=== PATIENT | female | born 1985 | race Caucasian/White ===

== ENCOUNTER → 2023-12-16 07:59 | Outpatient (BNVA) | payer OTHER, SELFPAY | PROVIDERS: Visit Provider Physician Assistant Surgical ==

== ENCOUNTER 2024-02-07 13:05 | Outpatient (AMB) | payer OTHER, SELFPAY ==
--- NOTE | 2024-02-07 13:15 | MHC.OFFVISWM ---
VS Expanded 02/07/24 13:36 Height 5 ft 4 in Weight 218 lb 8 oz BMI 37.5 Body Fat % 41.8 Body Fat Mass 91.4 Fat Free Mass 127.2 Visceral Fat Rating 10 Body Water % 41.5 Body Water Mass 90.8 Basal Metabolic Rate/Score 1,774 Intake Visit Reasons: TV Revision SWL BMI 37.6 *SEE COMMENTS* Allergies adhesive Allergy (Severe, Verified 02/07/24 13:15) Blister Medication List - Last Reconciled 02/07/24 by Alfredo Taylor MD ferrous sulfate (FeroSul) 325 mg PO DAILY levothyroxine 25 mcg PO DAILY multivitamin (Multiple Vitamins tablet) 1 tab PO DAILY omeprazole 20 mg PO BID HPI HPI TV Revision SWL BMI 37.6 *SEE COMMENTS*: Details: Start time: 1.09pm, End time: 1.54pm ?I spent 40 minutes speaking with the patient on the phone plus an additional 5 minutes reviewing and updating records for a total of 45 minutes HPI Comments Details: Previous weight loss efforts: LSG (Pre-sleeve: 287lbs, lowest: 205lbs) Complains of GERD and has been diagnosed with a diaphragmatic hernia Wakes up: 6am, Sleeps: 12am Breakfast: skips Lunch: may skip 1pm (2 boiled eggs and one apple or cheese sticks, or some bread) Dinner: 6.30pm (rice, meats, chicken, fish, vegetables) Snacks: 8am (crackers), 8pm (chips or fruits, goldfish crackers, yogurt) Exercise: none Fluids: Coffee 30oz/d (creamers), tea: none, soda: none, juice: rarely, ETOH: a few times per year PFSH Medical History (Updated 02/07/24 @ 13:40 by Alfredo Taylor MD) Hypothyroidism Knee pain Diaphragmatic hernia GERD (gastroesophageal reflux disease) BMI 37.0-37.9, adult Obesity Surgical History (Updated 12/16/23 @ 09:02 by Jhoana Hernandez CMA) Hx of laparoscopic partial gastrectomy Hx of tubal ligation Hx of section Hx of cholecystectomy Hx of adenoidectomy Hx of tonsillectomy Hx of myringotomy Social History (Updated 12/16/23 @ 09:03 by Jhoana Hernandez CMA) Alcohol intake: current Alcohol intake frequency: holidays/special occasions only Alcohol type: hard liquor and other Patient Tobacco Use Status: Never used Tobacco Telehealth Telehealth Telehealth Platform: Telephone Location of provider rendering services: practice address Location of patient: address on file Patient Identification confirmed using: Name, : Yes Telehealth method: voice only Patient verbally consented to treatment: Yes Patient verbally consented to billing insurance company: Yes Patient informed of any privacy concerns related to visit: Yes Minutes spent on Phone/Video with Pt.: 45 Assessment & Plan Assessment & Plan (1) Obesity: Code(s): E66.9 - Obesity, unspecified Category: Medical Qualifiers: Obesity type: due to excess calories Obesity classification: adult class 2 (BMI 35 - 39.9) Serious obesity comorbidity presence: without serious comorbidity Body mass index: BMI 37.0-37.9 Qualified Code(s): E66.09 - Other obesity due to excess calories; Z68.37 - Body mass index [BMI] 37.0-37.9, adult Plan: 1.? Plan for lap sleeve gastrectomy revision. If diaphragmatic or ventral hernias are present at time of surgery, these will be repaired laparoscopically as well. Risks and complications include possible conversion to an open procedure, anastomotic leak, bleeding requiring transfusion, small bowel obstruction, , DVT and pulmonary embolism, cardiac, or pulmonary complications, as detention complications such as anastomotic ulcer, insufficient weight loss, inability to complete the surgery revision and vitamin deficiencies. I emphasized the importance of close follow-up, adherence to instructions and good communication. 2. You will receive a link of our software yfn to generate an individualized nutritional and exercise plan specific for you. Please send me a screenshot of the plans you will generate Meal to include lean meat (beef, fish, pork, turkey, chicken), or moroccan yogurt, or egg whites, or beans with a salad with olive oil and fruits (berries, pears, apples, kiwi). Avoid salt, breads, potatoes, rice, pasta, desserts. ?3. If you choose shakes, each shake would be drunk slowly, like coffee in a period of 2 hours. ?4. If you choose bars, cut each bar in 4 pieces and eat each piece in 30min ?to make each bar last 2 hours. ?5. I emphasized the importance of measuring accurately the food portion and measure it when serving the food in plate ?6. The meal portions include a specific number of forks of meat and salad. You always eat the meat portion but you can replace up to half of salad/vegetables portion with rice, potatoes or pasta, or a fruit ?if you like. The less you do it the better weight loss will be. ?7. One full-size fork is what it can be scooped on the fork without falling aside and not what can be bit with the fork. Use regular forks like those you find in a typical restaurant. ?8.? Please send me weight measurements as soon as possible and then once a week. Always include your diet and exercise plan. 9. The best choice would be to purchase a stationary bike, elliptical or treadmill at home that can track calories. Let me know if you do so I can give you an exercise plan. ?10.?It is important of avoiding and for at least 18 months postoperatively and has been discussed at the infosession. ?11. Goal is to lose at least 1.5-2lbs per week ?12. Goal to lose 10% of your weight before surgery, which is about 22lbs. Ultimate weight goal: 196lbs before surgery 13. Please follow the diet plan exactly without any change. If you don't like something about the plan or you feel hungry you need to communicate with me so I can help you revise the plan. You should not change the plan yourself. 14. To be scheduled for EGD due to history of GERD and diaphragmatic hernia. The possibility of biopsies was discussed. Patient needs to avoid use of NSAIDs and aspirin for 1 week prior to EGD. Risks of perforation and? bleeding was discussed with the patient. This will be an outpatient procedure with IV sedation. Orders: Orders Insulin Today E03.9 - Hypothyroidism, unspecified, E66.9 - Obesity, unspecified, K21.9 - Gastro-esophageal reflux disease without esophagitis, K44.9 - Diaphragmatic hernia without obstruction or gangrene, Z68.37 - Body mass index [BMI] 37.0-37.9, adult Hemoglobin A1c Today E03.9 - Hypothyroidism, unspecified, E66.9 - Obesity, unspecified, K21.9 - Gastro-esophageal reflux disease without esophagitis, K44.9 - Diaphragmatic hernia without obstruction or gangrene, Z68.37 - Body mass index [BMI] 37.0-37.9, adult H Pylori Breath Test Today E03.9 - Hypothyroidism, unspecified, E66.9 - Obesity, unspecified, K21.9 - Gastro-esophageal reflux disease without esophagitis, K44.9 - Diaphragmatic hernia without obstruction or gangrene, Z68.37 - Body mass index [BMI] 37.0-37.9, adult IRON PROFILE Today E03.9 - Hypothyroidism, unspecified, E66.9 - Obesity, unspecified, K21.9 - Gastro-esophageal reflux disease without esophagitis, K44.9 - Diaphragmatic hernia without obstruction or gangrene, Z68.37 - Body mass index [BMI] 37.0-37.9, adult Comprehensive Met. Panel Today E03.9 - Hypothyroidism, unspecified, E66.9 - Obesity, unspecified, K21.9 - Gastro-esophageal reflux disease without esophagitis, K44.9 - Diaphragmatic hernia without obstruction or gangrene, Z68.37 - Body mass index [BMI] 37.0-37.9, adult C Reactive Protein Today E03.9 - Hypothyroidism, unspecified, E66.9 - Obesity, unspecified, K21.9 - Gastro-esophageal reflux disease without esophagitis, K44.9 - Diaphragmatic hernia without obstruction or gangrene, Z68.37 - Body mass index [BMI] 37.0-37.9, adult Vitamin B1 Today E03.9 - Hypothyroidism, unspecified, E66.9 - Obesity, unspecified, K21.9 - Gastro-esophageal reflux disease without esophagitis, K44.9 - Diaphragmatic hernia without obstruction or gangrene, Z68.37 - Body mass index [BMI] 37.0-37.9, adult Vitamin A Today E03.9 - Hypothyroidism, unspecified, E66.9 - Obesity, unspecified, K21.9 - Gastro-esophageal reflux disease without esophagitis, K44.9 - Diaphragmatic hernia without obstruction or gangrene, Z68.37 - Body mass index [BMI] 37.0-37.9, adult TSH reflex Free T4 Today E03.9 - Hypothyroidism, unspecified, E66.9 - Obesity, unspecified, K21.9 - Gastro-esophageal reflux disease without esophagitis, K44.9 - Diaphragmatic hernia without obstruction or gangrene, Z68.37 - Body mass index [BMI] 37.0-37.9, adult Ferritin Today E03.9 - Hypothyroidism, unspecified, E66.9 - Obesity, unspecified, K21.9 - Gastro-esophageal reflux disease without esophagitis, K44.9 - Diaphragmatic hernia without obstruction or gangrene, Z68.37 - Body mass index [BMI] 37.0-37.9, adult US abdomen comp w elastography Today E03.9 - Hypothyroidism, unspecified, E66.9 - Obesity, unspecified, K21.9 - Gastro-esophageal reflux disease without esophagitis, K44.9 - Diaphragmatic hernia without obstruction or gangrene, Z68.37 - Body mass index [BMI] 37.0-37.9, adult ECG 12 lead EKG Today E03.9 - Hypothyroidism, unspecified, E66.9 - Obesity, unspecified, K21.9 - Gastro-esophageal reflux disease without esophagitis, K44.9 - Diaphragmatic hernia without obstruction or gangrene, Z68.37 - Body mass index [BMI] 37.0-37.9, adult Complete Blood Count Auto Diff Today E03.9 - Hypothyroidism, unspecified, E66.9 - Obesity, unspecified, K21.9 - Gastro-esophageal reflux disease without esophagitis, K44.9 - Diaphragmatic hernia without obstruction or gangrene, Z68.37 - Body mass index [BMI] 37.0-37.9, adult Lipid Panel Today E03.9 - Hypothyroidism, unspecified, E66.9 - Obesity, unspecified, K21.9 - Gastro-esophageal reflux disease without esophagitis, K44.9 - Diaphragmatic hernia without obstruction or gangrene, Z68.37 - Body mass index [BMI] 37.0-37.9, adult Vitamin B12 and Folate Today E03.9 - Hypothyroidism, unspecified, E66.9 - Obesity, unspecified, K21.9 - Gastro-esophageal reflux disease without esophagitis, K44.9 - Diaphragmatic hernia without obstruction or gangrene, Z68.37 - Body mass index [BMI] 37.0-37.9, adult Zinc Today E03.9 - Hypothyroidism, unspecified, E66.9 - Obesity, unspecified, K21.9 - Gastro-esophageal reflux disease without esophagitis, K44.9 - Diaphragmatic hernia without obstruction or gangrene, Z68.37 - Body mass index [BMI] 37.0-37.9, adult Vitamin D 25-OH Total Today E03.9 - Hypothyroidism, unspecified, E66.9 - Obesity, unspecified, K21.9 - Gastro-esophageal reflux disease without esophagitis, K44.9 - Diaphragmatic hernia without obstruction or gangrene, Z68.37 - Body mass index [BMI] 37.0-37.9, adult XR chest 2V Today E03.9 - Hypothyroidism, unspecified, E66.9 - Obesity, unspecified, K21.9 - Gastro-esophageal reflux disease without esophagitis, K44.9 - Diaphragmatic hernia without obstruction or gangrene, Z68.37 - Body mass index [BMI] 37.0-37.9, adult Referrals Behavioral Health Referral E03.9 - Hypothyroidism, unspecified, E66.9 - Obesity, unspecified, K21.9 - Gastro-esophageal reflux disease without esophagitis, K44.9 - Diaphragmatic hernia without obstruction or gangrene, Z68.37 - Body mass index [BMI] 37.0-37.9, adult Nutrition/Dietitian Referral E03.9 - Hypothyroidism, unspecified, E66.9 - Obesity, unspecified, K21.9 - Gastro-esophageal reflux disease without esophagitis, K44.9 - Diaphragmatic hernia without obstruction or gangrene, Z68.37 - Body mass index [BMI] 37.0-37.9, adult
[2024-02-07 13:36] VITALS: BMI 37.5
== END 2024-02-07 13:55 | disposition home or self-care (01) ==
LOC: HO.HBS 13:05
PROVIDERS: PCP Internal Medicine; Visit Provider Surgery
DX: E66.09 Other obesity due to excess calories (principal); Z68.37 Body mass index [BMI] 37.0-37.9, adult
CPT/HCPCS: 99443

== ENCOUNTER → 2024-02-07 13:05 | Outpatient (BNVA) | payer OTHER, SELFPAY | PROVIDERS: PCP Internal Medicine; Visit Provider Surgery ==

== ENCOUNTER 2024-03-01 12:50 | Day surgery (SDC) | payer OTHER, SELFPAY ==
[2024-03-01 12:49] LABS: MANUAL DIFF FLAG NO
[2024-03-01 13:24] LABS: Basophils Absolute Auto 0.1 X10*3/uL (0.0-0.2); Basophils Percent Auto 0.9 % (0-2); Eosinophils Absolute Auto 0.1 X10*3/uL (0.0-0.4); Eosinophils Percent Auto 2.4 % (0-4); Hematocrit 37.8 % (37.0-47.0); Hemoglobin 11.9 g/dl (12.0-16.0); Imm Gran Abs Auto 0.02 X10*3/uL (0.00-0.03); Imm Gran Pct Auto 0.4 % (0.0-0.4); Mean Corpuscular HGB Conc 31.5 g/dl (31.0-35.0); Mean Corpuscular Hemoglobin 23.8 pg (27.0-33.0); Mean Corpuscular Volume 75.4 fL (80.0-98.0); Mean Platelet Volume 11.7 fL (9.4-12.3); Monocytes Absolute Auto 0.4 X10*3/uL (0.1-1.2); Monocytes Percent Auto 8.1 % (2-11); Neutrophils Absolute Auto 2.8 x10*3/uL (2.0-8.3); Neutrophils Percent Auto 52.2 % (45-73); Platelet Count 238 X10*3/uL (160-400); Red Blood Count 5.01 X10*6/uL (4.20-5.50); Red Cell Distribution Width 13.8 % (11.0-16.0); White Blood Count 5.4 X10*3/uL (4.8-10.8)
[2024-03-01 13:45] LABS: Estimated Average Glucose 105 mg/dL; Hemoglobin A1c % 5.3 % (<6.0)
--- NOTE | 2024-03-01 14:21 | HO.ANESPROP2 ---
HPI - Anesthesia Eval Consult details Narrative: 38 yo female patient for EGD. Pre-op for revision of sleeve gastrectomy, repair of diaphragmatic hernia PMFSH Active Problems Active Problems: All Active Problems Hypothyroidism (Acute) Knee pain (Acute) Diaphragmatic hernia (Acute) GERD (gastroesophageal reflux disease) (Acute) Morbid Obesity BMI 40.4 Denies HUI Hiatal hernia Past Medical History Medical History Hypothyroidism Knee pain Diaphragmatic hernia GERD (gastroesophageal reflux disease) BMI 37.0-37.9, adult Obesity Family History Family history of problems with anesthesia: No Surgical History Surgical History Hx of laparoscopic partial gastrectomy Hx of tubal ligation Hx of section Hx of cholecystectomy Hx of adenoidectomy Hx of tonsillectomy Hx of myringotomy History of Problems with Anesthesia: No Social History Social History Alcohol intake: current Alcohol intake frequency: holidays/special occasions only Alcohol type: hard liquor and other Patient Tobacco Use Status: Never used Tobacco Meds Allergies Allergy/AdvReac Type Severity Reaction Status Date / Time adhesive Allergy Severe Blister Verified 03/01/24 14:26 Active Medications: Current Medications Lactated Ringer's (Lr) 1,000 mls @ 80 mls/hr IVCONT .[id number] Home Medications ?Medication ?Instructions ?Recorded ?Confirmed ?Last Taken ?Type ferrous sulfate 325 mg (65 mg 325 mg PO DAILY 12/16/23 03/01/24 Unknown History iron) tablet (FeroSul) levothyroxine 25 mcg capsule 25 mcg PO DAILY 12/16/23 03/01/24 Unknown History multivitamin (Multiple Vitamins 1 tab PO DAILY 12/16/23 03/01/24 Unknown History tablet) omeprazole 20 mg capsule,delayed 20 mg PO BID 02/07/24 03/01/24 Unknown History release Exam Height,Weight and Vital Signs: Height 5 ft 3 in Weight 103.419 kg Vital Signs Temp Pulse Resp BP Pulse Ox O2 Del Method 03/01/24 14:27 98.0 F 73 16 160/85 H 98 Room Air Pertinent Lab Results Pertinent Lab Results: Laboratory Tests 03/01/24 12:48 WBC 5.4 RBC 5.01 Hgb 11.9 L Hct 37.8 MCV 75.4 L MCH 23.8 L MCHC 31.5 RDW 13.8 Plt Count 238 MPV 11.7 Immature Gran % (Auto) 0.4 Neut % (Auto) 52.2 Lymph % (Auto) 36.0 [place] % (Auto) 8.1 Eos % (Auto) 2.4 Baso % (Auto) 0.9 Lymph # (Auto) 2.0 [place] # (Auto) 0.4 Eos # (Auto) 0.1 Baso # (Auto) 0.1 Abs Immat Gran (auto) 0.02 Absolute Neuts (auto) 2.8 Absolute Nucleated RBC 0.000 Nucleated RBC % (auto) 0.0 Estimat Average Glucose 105 Hemoglobin A1c % 5.3 Lab Results 03/01/24 Range/Units 12:48 WBC 5.4 (4.8-10.8) X10*3/uL RBC 5.01 (4.20-5.50) X10*6/uL Hgb 11.9 L (12.0-16.0) g/dl Hct 37.8 (37.0-47.0) % MCV 75.4 L (80.0-98.0) fL MCH 23.8 L (27.0-33.0) pg MCHC 31.5 (31.0-35.0) g/dl RDW 13.8 (11.0-16.0) % Plt Count 238 (160-400) X10*3/uL MPV 11.7 (9.4-12.3) fL Immature Gran % (Auto) 0.4 (0.0-0.4) % Neut % (Auto) 52.2 (45-73) % Lymph % (Auto) 36.0 (20-40) % [place] % (Auto) 8.1 (2-11) % Eos % (Auto) 2.4 (0-4) % Baso % (Auto) 0.9 (0-2) % Lymph # (Auto) 2.0 (1.2-4.9) X10*3/uL [place] # (Auto) 0.4 (0.1-1.2) X10*3/uL Eos # (Auto) 0.1 (0.0-0.4) X10*3/uL Baso # (Auto) 0.1 (0.0-0.2) X10*3/uL Abs Immat Gran (auto) 0.02 (0.00-0.03) X10*3/uL Absolute Neuts (auto) 2.8 (2.0-8.3) x10*3/uL Absolute Nucleated RBC 0.000 (0.0-0.012) X10*3/uL Nucleated RBC % (auto) 0.0 (0.0-0.2) /100WBC Sodium 141 (135-145) mmol/L Potassium 4.1 (3.3-5.1) mmol/L Chloride 108 (96-108) mmol/L Carbon Dioxide 25 (22-29) mmol/L Anion Gap 12 (12-20) BUN 12 (9-16) mg/dL Creatinine 0.80 (0.5-1.4) mg/dL Estim Creat Clear Calc 107.4 Estimated GFR > 60 Random Glucose 84 (60-115) mg/dL Estimat Average Glucose 105 mg/dL Hemoglobin A1c % 5.3 (<6.0) % Insulin Level 5 (2-29) uU/mL Calcium 9.2 (8.4-10.2) mg/dL Iron 34 (30-160) mcg/dL TIBC 329 (228-428) mcg/dL % Saturation 10 L (15-50) % Unsat Iron Binding 295 ug/dL Ferritin 5 L (10-250) ng/mL Total Bilirubin 0.8 (0.0-1.0) mg/dL AST 14 (5-31) U/L ALT 12 (0-31) U/L Alkaline Phosphatase 83 (39-117) U/L C-Reactive Protein 0.72 H (< or = 0.50) mg/dL Total Protein 7.3 (6.5-8.0) g/dL Albumin 4.1 (3.5-5.0) g/dL Triglycerides 83 (<150) mg/dL Cholesterol 154 (<200) mg/dL LDL Cholesterol, Calc 83 (<100) mg/dL HDL Cholesterol 55 (>40) mg/dL 25-OH Vitamin D Total 20.7 L (>30) ng/mL TSH 3.65 (0.32-4.0) uIU/mL Airway Mallampati Class: II TM Dist: >3cm Neck ROM: Full Loose/Missing/Broken Teeth: Yes (Missing teeth- back. Denies broken or loose teeth) Heart: RRR Lungs: CTAB Assessment and Plan Assessment Anesthesia Assessment: Anesthesia Plan Discussed and Chart Reviewed Final Anesthetic Review Family History of Problems with Anesthesia: No History of Problems with Anesthesia: No NPO: Yes ASA Class: III Final Preanesthetic Review: No Changes in Pt Med Stat, Meds/Allgs Chart Reviewed, Consent Obtained/Reviewed and Anes Risks/Benef Reviewed Patient Risk: Intermediate Procedure Risk: Low Assessment/Block/Sedation in SS: Assess/Block/Sedation-SS Anesthetic Plan Anesthetic Plan: TIVA Disposition: Standard PACU
[2024-03-01 14:26] VITALS: BMI 40.4
[2024-03-01 14:27] VITALS: BP 160/85; PULSE 73; RESP 16; TEMP 36.7; O2SAT 98
[2024-03-01 14:29] LABS: Alanine Aminotransferase 12 U/L (0-31); Albumin Level 4.1 g/dL (3.5-5.0); Alkaline Phosphatase 83 U/L (39-117); Anion Gap 12 (12-20); Aspartate Amino Transferase 14 U/L (5-31); Bilirubin Total 0.8 mg/dL (0.0-1.0); Blood Urea Nitrogen 12 mg/dL (9-16); C Reactive Protein 0.72 mg/dL (< or = 0.50); Calcium 9.2 mg/dL (8.4-10.2); Carbon Dioxide 25 mmol/L (22-29); Chloride 108 mmol/L (96-108); Cholesterol 154 mg/dL (<200); Creatinine Clr Calc Pharmacy 107.4; Estimated Glomerular Filt Rate > 60; Glucose Random 84 mg/dL (60-115); HDL Cholesterol 55 mg/dL (>40); Iron 34 mcg/dL (30-160); LDL Cholesterol Calculated 83 mg/dL (<100); Percent Iron Saturation 10 % (15-50); Potassium 4.1 mmol/L (3.3-5.1); Sodium 141 mmol/L (135-145); Total Iron Binding Capacity 329 mcg/dL (228-428); Total Protein 7.3 g/dL (6.5-8.0); Triglycerides 83 mg/dL (<150); Unsaturated Iron Binding 295 ug/dL
[2024-03-01 14:32] LABS: Ferritin 5 ng/mL (10-250); Insulin 5 uU/mL (2-29); TSH reflex Free T4 3.65 uIU/mL (0.32-4.0); Vitamin D 25-OH Total 20.7 ng/mL (>30)
[2024-03-01 14:50] LABS: Vitamin B12 472 pg/mL (200-900)
--- NOTE | 2024-03-01 15:00 | MHC.SHP ---
Pre-Procedural Eval Section A - 24 Hr Update-Section A only Date of Service: 03/01/24 The patient is an INPATIENT: No The patient has been examined within 24 hours of the surgical procedure. The History & Physical has been completed within 30 days and I have reviewed it.: Yes Section B - Complete if H&P > 30 days Chief Complaint: Bariatric surgery status Details of Present Illness: Diaphragmatic hernia Relevant Family History (Specify if Yes): No Relevant Social History: None Present Medications: None Medical History: No relevant PMH History of Previous Operations: Relevant previous surgery/procedure and date(s) (s/p sleeve gastrectomy Dr. Marshall) Allergies: Allergies Allergy/AdvReac Type Severity Reaction Status Date / Time adhesive Allergy Severe Blister Verified 03/01/24 14:26 Review of Systems Sugical H&P ROS: Negative: Constitution, Cardiovascular, Respiratory, Neurological, Psychiatric, Hem-Onc, Allergic/Immunologic, Gastrointestinal, Genitourinary, Musculoskeletal, Integumentary, Endocrine and Eyes/Ears/Nose/Throat Exam Surgical H&P Exam: Normal: HEENT, Normal: Heart, Normal: Lungs, Normal: Extremities, Normal: Abdomen, Normal: Skin and Normal: Neurological Plan Diagnosis/Plan: Unchanged (EGD to assess the diaphragmatic hernia and the anatomy of the sleeve. Risks of bleeding and perforation were discussed with the patient and she is in agreement with the plan.) I have reviewed the history and physical and performed a pertinent physical examination on my patient. No changes have occurred unless specified. Time Spent With Patient Time: Total time managing care of this patient today ____ minutes.
--- NOTE | 2024-03-01 15:20 | PM.OP ---
Brief Operative Note Date of Service: 03/01/24 Pre-op diagnosis: Diaphragmatic hernia, s/p sleeve gastrectomy Post-op diagnosis: same (1) Diaphragmatic hernia, 2) moderate size redundancy of proximal sleeve) Procedure: PROCEDURE DATE: 03/01/2024 PREOPERATIVE DIAGNOSIS: GERD, s/p sleeve gastrectomy POSTOPERATIVE DIAGNOSIS: ?Same as above. 1) small hiatal hernia, 2) moderate/significant redundancy of proximal sleeve, 3) large caliber sleeve PROCEDURE: [id number] with biopsies Surgeon: ?Nic Taylor M.D.. Ph.D. [employer] Worker: None ? Anesthesia: IV sedation Estimated blood loss: ?Minimal FINDINGS AND PROCEDURE: ? OPERATIVE INDICATIONS: ?The patient is a 38 year old female known to me who underwent a laparoscopic sleeve gastrectomy at [facility] by Dr. Marshall. The patient had inadequate weight loss so far and has a diaphragmatic hernia based on recent UGI. The patient was doing very well but has recently been complaining of GERD. Based on this information I recommended an upper endoscopy to evaluate the patient's symptoms. Risks and complications of the surgery were discussed with the patient in advance particularly the possibility of perforation or bleeding that may require surgical intervention. The patient understood the risks and was in agreement with the plan. ? PROCEDURE: After informed consent was obtained by the patient, the patient was ?transferred to the Operating Room and was placed in the supine position.? After successful induction of IV sedation, a mouth block was inserted and the patient was placed in the left lateral decubitus position. An upper endoscopy was performed next, the oropharynx and esophagus appeared within the normal limits. There was a small 3cm hiatal hernia. The z-line was smooth. Two biopsies were obtained from the distal esophagus 2-3 cm proximal to the GE junction and two additional biopsies from the GE junction. The sleeve was entered. There was moderate to significant proximal redundancy of the sleeve. The distal sleeve had a large caliber overall. There was no gastritis. There was no stricture or ulcer. Biopsies were obtained from the proximal sleeve as well as the antrum. No significant bleeding was noted from any of the biopsy sites. The scope was then advanced into the duodenum which appeared to be normal as well. At that point the duodenum ?and the sleeve were decompressed and the scope was withdrawn from the patient's mouth. The patient extubated and was transferred in stable condition to the Recovery Room for further care. I was present and performed all steps of the procedure. There were no residents to assist with this case. Nic Taylor M.D., Ph.D. Surgeon: Alfredo Taylor MD Anesthesia: MAC Was an [employer] Worker used for this Procedure?: No Estimated blood loss (mL): 0 IV fluids (mL): 400 Urine output (mL): 0 (No Goins to record output) Pathology: other (1) antrum x1, 2) proximal sleeve/gastric fundus x1, 3) EGJ x2, 4) distal esophagus x2) Condition: stable Disposition: PACU
[2024-03-01 15:23] VITALS: BP 121/71; PULSE 93; RESP 18; TEMP 36.3; O2SAT 98
[2024-03-01 15:38] VITALS: BP 136/78; PULSE 65; RESP 16; TEMP 36.3; O2SAT 100
[2024-03-01 15:52] VITALS: BP 123/80; PULSE 67; RESP 16; TEMP 36.3; O2SAT 100
[2024-03-04 09:08] LABS: Zinc 71 mcg/dL (60-130)
[2024-03-04 21:48] LABS: Vitamin A 31 mcg/dL (38-98)
[2024-03-07 06:40] LABS: Vitamin B1 10 nmol/L (8-30)
== END 2024-03-01 16:06 | disposition home or self-care (01) ==
PROVIDERS: PCP Internal Medicine; Visit Provider Surgery
PROC: 0DJ08ZZ Inspection of Upper Intestinal Tract, Via Natural or Artificial Opening Endoscopic (ICD-10-PCS; CPT 43235; principal; 2024-03-01 15:50)
DX: K21.9 Gastro-esophageal reflux disease without esophagitis (principal); K44.9 Diaphragmatic hernia without obstruction or gangrene; Z98.84 Bariatric surgery status; Z90.3 Acquired absence of stomach [part of]; E66.09 Other obesity due to excess calories; Z68.37 Body mass index [BMI] 37.0-37.9, adult; M25.569 Pain in unspecified knee; E03.9 Hypothyroidism, unspecified; Z79.899 Other long term (current) drug therapy; L23.1 Allergic contact dermatitis due to adhesives; Z98.890 Other specified postprocedural states
CPT/HCPCS: 43239; 36415; 80053; 80061; 82306; 82607; 82728; 82746; 83036; 83525; 83540; 84425; 84443; 84590; 84630; 85025; 86140; 88305; 88313; 88342; J2704

== ENCOUNTER → 2024-03-01 12:50 | Outpatient (BNV) | payer OTHER, SELFPAY | PROVIDERS: PCP Internal Medicine; Visit Provider Surgery | DX: K44.9 Diaphragmatic hernia without obstruction or gangrene (principal); K95.89 Other complications of other bariatric procedure; Z98.84 Bariatric surgery status | CPT/HCPCS: 43239 ==

== ENCOUNTER 2024-03-17 08:21 | Outpatient (REF) | payer OTHER, SELFPAY ==
--- NOTE | ~2024-03-17 | XR_ITS ---
EXAMINATION: XR CHEST 2 VIEWS CLINICAL INFORMATION: Obesity. COMPARISON: None. TECHNIQUE: Frontal and lateral views of the chest were obtained. FINDINGS: The heart, great vessels, pulmonary vasculature and mediastinum are normal. The lungs show no focal infiltrate, effusion or pneumothorax. There is no acute osseous abnormality. XR/XR chest 2V IMPRESSION: No active cardiopulmonary disease.
--- NOTE | ~2024-03-17 | US_ITS ---
EXAMINATION: US COMPLETE ABDOMEN WITH LIVER ELASTOGRAPHY CLINICAL INFORMATION: Obesity. COMPARISON: None available. TECHNIQUE: Real-time imaging of the abdominal viscera. Noninvasive ultrasound liver fibrosis assessment is performed using Deepak ElastPQ point quantification shear wave elastography (pSWE) with a C5-2 MHz transducer. Multiple elastography samples are obtained. FINDINGS: PANCREAS: Limited. The visualized pancreatic head and body are normal in appearance. The remainder of the pancreas is obscured from visualization by the overlying bowel gas. ABDOMINAL AORTA: The proximal, middle, and distal aortic segments are normal in caliber. INFERIOR VENA CAVA: Visualized portions are normal. LIVER: Normal. The liver demonstrates normal size, contour and echogenicity. No focal lesion or intrahepatic biliary duct dilatation. The right lobe measures 15.0 cm in length. The left lobe measures 7.8 cm in length. Portal flow is towards the liver (hepatopetal). Shear wave liver elastography median stiffness is 1.17 m/s (reference: normal median stiffness is 1.3 m/s or less). IQR/median stiffness to assess sampling precision is 0.23 (reference: good quality data set is IQR/median stiffness of 0.15 or less). GALLBLADDER: Normal. The gallbladder is physiologically distended without evidence of stones, sludge, polyps, wall thickening or pericholecystic fluid. COMMON BILE DUCT: Normal in caliber measuring 0.5 cm in diameter. RIGHT KIDNEY: Normal. No hydronephrosis. No renal calculi or focal parenchymal lesions. The kidney measures 11.6 cm in maximum dimension. LEFT KIDNEY: Normal. No hydronephrosis. No renal calculi or focal parenchymal lesions. The kidney measures 12.0 cm in maximum dimension. SPLEEN: Normal. The spleen measures 12.9 cm in maximum dimension. FREE FLUID: None. US/US abdomen comp w elastography IMPRESSION: 1. The spleen is upper normal in size. 2. The gallbladder is surgically absent. 3. Liver elastography: Measurements are consistent with a high probability of normal liver stiffness. REFERENCE: Society of Radiologists in Ultrasound Liver Stiffness Thresholds (2020): LIVER STIFFNESS THRESHOLDS: *Liver Stiffness equal or less than 1.3 m/s: High probability of being normal. *Liver Stiffness less than 1.7 m/s: In the absence of other known clinical signs, rules out compensated advanced chronic liver disease. *Liver Stiffness 1.7-2.1 m/s: Suggestive of compensated advanced chronic liver disease but need further test for confirmation. *Liver Stiffness over 2.1 m/s: Rules in compensated advanced chronic liver disease. *Liver Stiffness over 2.4 m/s: Suggestive of clinically significant portal hypertension. QUALITY OF DATA SET: *IQR/Median value equal or less than 0.15 implies a quality data set. *IQR/Median value over 0.15 implies a poor quality data set. SIGNIFICANT CHANGE FROM PRIOR EXAM: Significant change if liver stiffness measurement is 10% or greater from prior exam. OTHER CONSIDERATIONS: The stage of liver fibrosis may be overestimated in the setting of acute hepatitis, liver inflammation, elevated liver function tests, hepatic vascular congestion, obstructive cholestasis, non-fasting state, and infiltrative diseases such as amyloidosis and lymphoma. In some patients with NAFLD, the liver stiffness thresholds for compensated advanced chronic liver disease may be lower. In causes other than viral hepatitis and NAFLD, liver stiffness thresholds are not well established. Electronically signed by: Carlos Roberto MD 04/14/2024 01:09 AM EDT
--- NOTE | 2024-03-17 08:26 | ECG_ITS ---
Test Reason : OBESITY Blood Pressure : / mmHG Vent. Rate : 071 BPM Atrial Rate : 071 BPM P-R Int : 146 ms QRS Dur : 084 ms QT Int : 390 ms P-R-T Axes : 058 044 009 degrees QTc Int : 423 ms Normal sinus rhythm Normal ECG No previous ECGs available Referred By: Alfredo Taylor Electronically Signed By:JOYA VILLAFUERTE
== END 2024-03-17 08:22 | disposition home or self-care (01) ==
LOC: HO.US 08:21
PROVIDERS: PCP Internal Medicine; Visit Provider Surgery
DX: E66.9 Obesity, unspecified (principal); Z68.37 Body mass index [BMI] 37.0-37.9, adult; K21.9 Gastro-esophageal reflux disease without esophagitis; K44.9 Diaphragmatic hernia without obstruction or gangrene; E03.9 Hypothyroidism, unspecified
CPT/HCPCS: 71046; 76700; 76981; 93005

== ENCOUNTER → 2024-03-17 08:26 | Outpatient (BNV) | payer OTHER, SELFPAY | PROVIDERS: PCP Internal Medicine; Visit Provider Internal Medicine | DX: E03.9 Hypothyroidism, unspecified (principal); E66.9 Obesity, unspecified; Z68.37 Body mass index [BMI] 37.0-37.9, adult; K21.9 Gastro-esophageal reflux disease without esophagitis | CPT/HCPCS: 93010 ==

== ENCOUNTER 2024-03-29 13:17 | Outpatient (AMB) | payer OTHER, SELFPAY ==
--- NOTE | 2024-03-29 13:13 | A.OFFWM_ITS ---
Intake Intake Visit Reasons: (TV) Intake Allergies adhesive Allergy (Severe, Verified 03/01/24 14:26) Blister [facility] Medical History Hypothyroidism Knee pain Diaphragmatic hernia GERD (gastroesophageal reflux disease) BMI 37.0-37.9, adult Obesity Surgical History Hx of laparoscopic partial gastrectomy Hx of tubal ligation Hx of section Hx of cholecystectomy Hx of adenoidectomy Hx of tonsillectomy Hx of myringotomy Social History Alcohol intake: current Alcohol intake frequency: holidays/special occasions only Alcohol type: hard liquor and other Patient Tobacco Use Status: Never used Tobacco Behavioral Health Assessment Weight Management Therapy Therapy Notes Details assessment for Weight management program. Presenting Concerns Referral Source WMP Provider. Pt sees Dr. James at [facility]. Reason for referral Completion of behavioral health assessment as part of process for weight-loss surgery. Precipitating Event -PT had bariatric surgery in another [facility] and has not been losing weight as expected, she is also dealing with thyroid issues which has not help her. -Now she is looking to a more hand-on pr ogram to get guidance and support. -Obesity. Living Situation Current Living Situation Own At risk of losing current housing? No Satisfied with current living situation? Yes Comments PT lives with her long-term partner and 4 children. Food/Weight/Diet Expectations of change Initial goal is to lose 10% of her weight before surgery, which is about 22lbs. Ultimate weight goal: 196lbs before surgery. Pt reports she doesn't have a specific weight number in mind, her ultimate goal is to be at a healthy place and being able to keep up with how active is her family lifestyle and feel better with her body. Social History Family history and relationship Been with partner for 21 years, they have 4 children. PT reports a great relationship with her family. Parents are both alive, she doesn't have a relationship with them, parents have RENTERIA issues. She has 2 brothers and 3 sisters with whom she's very close. 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 Current WNL. Social support Partner, siblings. Community support None. Uatsdin/Spirituality Nondenominational, attend [employer] regularly. Cultural/Ethnic information Romanian Chinese. Partner is Palestinian. Legal Involvement and History Current or historical involvement with the legal system? None reported Education Highest grade completed GED, some college. Preferred learning style Written and Learn by doing Currently enrolled in educational program? No Interested in further educational program? Yes (wants to finish the nursing program as she finished all the pre-req. 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 No Meaningful activities Outdoors, go for walks, kayaking, crafting, sports. Financial Situation Describe current financial situation Comfortable Financial assistance? None Service Service? No Mental Health and Addiction Treatment Current/Past substance abuse? No Comments Social alcohol use a few times at year. Current/Past addictive behavior concerns? No Psychiatric history PT has been in counseling before. She had some anxiety after her son developed epilepsy at 11months old. [id number] went to counseling. Back in 2017, she has some counseling sessions trough the bariatric program. Never took medication. Denies ever been hospitalized or inpatient for mental health, in crisis and/or at risk self self-harm/other-harm. Medical and Physical Health Summary Additional Medical History not covered in history None reported Sexual History concerns None reported Physical exam in the last year? Yes Pain Screening Current pain? Yes (knees.) Pain in the last few months? Yes (knee pain.) Medications Is the patient compliant with medications? Yes Does the patient have Carvajal Guardian in place? Not applicable Does the patient use complimentary health approaches? No Trauma/Abuse History History of trauma? No Current Involvement By None Reported Additional Mandated Report Required None Reported Questionnaires PHQ-9 Over the last 2 weeks, how often have you been bothered by any of the following problems? 1. Little interest or pleasure in doing things: not at all 2. Feeling down, depressed, or hopeless: not at all 3. Trouble falling or staying asleep, or sleeping too much: not at all 4. Feeling tired or having little energy: not at all 5. Poor appetite or overeating: several days 6. Feeling bad about yourself - or that you are a failure or have let yourself or your family down: several days 7. Trouble concentrating on things, such as reading the newspaper or watching television: not at all 8. Moving or speaking so slowly that other people could have noticed. Or the opposite - being so fidgety or restless that you have been moving around a lot more than usual: not at all 9. Thoughts that you would be better off or of hurting yourself in some way: not at all Total score: 2 Depression Screening Interpretation: Negative (Scores from 02/06) Depression Screening Done: Yes Source: Developed by Drs. Modesto Rebolledo, Deanna Gibbs, Joni Lorenzana and colleagues, with an educational melvin from [employer]. Binge Eating Scale Group 1 A. I don't feel self-conscious about my wt. or body size when I'm with others. B. I feel concerned about how I look to others, but it normally does not make me fell disappointed with myself C. I do get self-conscious about my appearance and wt. which makes me feel disappointed in myself. D. I feel very self-conscious about my wt. and frequently I feel intense shame and disgust for myself. I try to avoid social contacts because of my self- consciousness. Response Group 1: C Group 2 A. I don't have any difficulty eating slowly in the proper manner. B. Although I seem to gobble down foods, I don't end up feeling stuffed because of eating to much. C. At times, I tend to eat quickly and then, I feel uncomfortably full afterwards. D. I have the habit of bolting down my food, without really chewing it. When this happens I usually feel uncomfortably stuffed because I've eaten to much. Response Group 2: C Group 3 A. I feel capable to control my eating urges when I want to. B. I feel like I have failed to control my eating more than the average person. C. I feel utterly helpless when it comes to feeling in control of my eating urges. D. Because I feel so helpless about controlling my eating I have become very desperate about trying to get control. Response Group 3: A Group 4 A. I don't have the habit of eating when I'm bored. B. I sometimes eat when I'm bored, but often I'm able to get busy and get my mind off food. C. I have a regular habit of eating when I'm bored, but occasionally, I can use some other activity to get my mind off eating. D. I have a strong habit of eating when I'm bored. Nothing seems to help me breath the habit. Response Group 4: B Group 5 A. I'm usually physically hungry when I eat something. B. Occasionally, I eat something on impulse even though I really am not hungry. C. I have the regular habit of eating foods, that I might not really enjoy, to satisfy a hungry feeling even though physically, I don't need the food. D. Although I'm not physically hungry, I get a hungry feeling in my mouth that only seems to be satisfied when I eat a food, like sandwich, that fills my mouth. Sometimes, when I eat the food to satisfy my mouth hunger, I then spit the food out so I won't gain weight. Response Group 5: B Group 6 A. I don't feel any guilt or self-hate after I overeat. B. After I overeat, occasionally I feel guilt or self-hate. C. Almost all the time I experience strong guilt or self-hate after I overeat. Response Group 6: B Group 7 A. I don't lose total control of my eating when dieting even after periods when I overeat. B. Sometimes when I eat a forbidden food on a diet, I feel like I blew it and eat even more. C. Frequently, I have the habit of saying to myself, I've blown it now, why not go all the way, when I overeat on a diet. When that happens I eat more. D. I have a regular habit of starting a strict diets for myself but I break the diets by going on an eating binge. My life seems to be either a feast or famine. Response Group 7: A Group 8 A. I rarely eat so much food that I feel uncomfortably stuffed afterwards. B. Usually about once a month, I each such a quantity of food, I end up feeling very stuffed. C. I have regular periods during the month when I eat large amounts of food, either at mealtime or at snacks. D. I eat so much food that I regularly feel quite uncomfortable after eating and sometimes a bit nauseous. Response Group 8: B Group 9 A. My level of calorie intake does not go up very high or go down very low on a regular basis. B. Sometimes after I overeat, I will try to reduce my caloric intake to almost nothing to compensate for the excess calories I've eaten. C. I have a regular habit of overeating during the night. It seems that my routine is not to be hungry in the morning but overeat in the evening. D. In my adult years, I have had week-long periods where I practically starve myself. This follows periods when I overeat. It seems I live a life of either feast or famine. Response Group 9: A Group 10 A. I usually am able to stop eating when I want to. I know when enough is enough. B. Every so often, I experience a compulsion to eat which I can't seem to control. C. Frequently, I experience strong urges to eat which I seem unable to control, but at other times I can control my eating urges. D. I feel incapable of controlling urges to eat. I have a fear of not being able to stop eating voluntarily. Response Group 10: A Group 11 A. I don't have any problem stopping eating when I feel full. B. I usually can stop eating when I feel full but occasionally overeat leaving me feeling uncomfortably stuffed. C. I have a problem stopping eating once I start and usually I feel uncomfortably stuffed after I eat a meal. D. Because I have a problem not being able to stop eating when I want, I sometimes have to induce vomiting to relieve my stuffed feeling. Response Group 11: A Group 12 A. I seem to eat just as much when I'm with others, Family social gatherings as when I'm by myself. B. Sometimes, when I'm with other persons, I don't eat as much as I want to eat because I'm self-conscious about my eating. C. Frequently, I eat only a small amount of food when others are present, because I'm very embarrassed about my eating. D. I feel so ashamed about overeating that I pick times to overeat when I know no one will see me. I feel like a closet eater. Response Group 12: A Group 13 A. I eat three meals a day with only an occasional between meal snack. B. I eat 3 meals a day, but I also normally snack between meals. C. When I am snacking heavily, I get in the habit of skipping regular meals. D. There are regular periods when I seem to be continually eating, with no planned meals. Response Group 13: A Group 14 A. I don't think much about trying to control unwanted eating urges. B. At least some of the time, I feel my thoughts are pre-occupied with trying to control my eating urges. C. I feel that frequently I spend much time thinking about how much I ate or about trying not to eat anymore. D. It seems to me that most of my waking hours are pre-occupied by thoughts about eating or not eating. I feel like I'm constantly struggling not to eat. Response Group 14: B Group 15 A. I don't think about food a great deal. B. I have strong craving for food but they last only for brief periods of time. C. I have days when I can't seem to think about anything else but food. D. Most of my days seem to be pre-occupied with thoughts about food. I feel like I live to eat. Response Group 15: A Group 16 A. I usually know whether or not I'm physically hungry. I take the right portion of food to satisfy me. B. Occasionally, I feel uncertain about knowing whether or not I'm physically hungry. A these times it's hard to know how much food I should take to satisfy me. C. Even though I might know how many calories I should eat, I don't have any idea what is a normal amount of food for me. Response Group 16: A Binge Eating Score: 9 Score less than 17 Minimal Risk Score between 18-26 Moderate Risk Score between 27-46 High Risk Assessment & Plan Assessment & Plan (1) Adjustment disorder: Code(s): F43.20 - Adjustment disorder, unspecified Plan: Assessment not finished today. We will meet again on 04/17/2024 at 1pm. Telehealth Telehealth Telehealth Platform: [facility] Location of provider rendering services: other Location of patient: other (Work) Patient Identification confirmed using: Name, : Yes Telehealth method: voice only Patient verbally consented to treatment: Yes Patient verbally consented to billing insurance company: Yes Patient informed of any privacy concerns related to visit: No Minutes spent on Phone/Video with Pt.: 55 Coding Level of Care Code New Pt Tele Psy Diag Eval ([id number]) Patient Type New Diagnoses Adjustment disorder F43.20 Time Spent (min) 55 Comment start: 1:05 End: 2:00pm
== END 2024-03-29 14:03 | disposition home or self-care (01) ==
LOC: HO.HBST 13:17
PROVIDERS: PCP Internal Medicine; Visit Provider Counselor Mental Health
DX: F43.20 Adjustment disorder, unspecified (principal)
CPT/HCPCS: 90791

== ENCOUNTER → 2024-03-29 13:17 | Outpatient (BNVA) | payer OTHER, SELFPAY | PROVIDERS: PCP Internal Medicine; Visit Provider Counselor Mental Health ==

== ENCOUNTER → 2024-04-17 13:39 | Outpatient (BNVA) | payer OTHER, SELFPAY | PROVIDERS: PCP Internal Medicine; Visit Provider Counselor Mental Health ==

== ENCOUNTER → 2024-04-17 13:39 | Outpatient (AMB) | payer OTHER, SELFPAY ==
--- NOTE | 2024-04-17 13:15 | A.OFFWM_ITS ---
Intake Intake Visit Reasons: VIDEO BH F/U Allergies adhesive Allergy (Severe, Verified 03/01/24 14:26) Blister [facility] Medical History Hypothyroidism Knee pain Diaphragmatic hernia GERD (gastroesophageal reflux disease) BMI 37.0-37.9, adult Obesity Surgical History Hx of laparoscopic partial gastrectomy Hx of tubal ligation Hx of section Hx of cholecystectomy Hx of adenoidectomy Hx of tonsillectomy Hx of myringotomy Social History Alcohol intake: current Alcohol intake frequency: holidays/special occasions only Alcohol type: hard liquor and other Patient Tobacco Use Status: Never used Tobacco Behavioral Health Assessment Weight Management Therapy Therapy Notes Details Pt is a 38 years old, female who presents for second session to complete behavioral health assessment as part of surgical weight-loss program. PT is interested in revision surgery as she had bariatric surgery back in 2017 an was never able to get under 205Lbs, she also feels never had the right support and the knowledge for a successful weight-loss journey. He hopes to lose weight, be more active and have sustained long-life changes. PT reported attending counseling in the past to navigate the management of her son's medical issues and when had bariatric surgery trough that program, however she has never been diagnosed with any formal mental health condition, and/or have had past hospitalization/crisis for behavioral health. Denies any safety concerns around SI and/or self-other harm, also there is no history of substance use reported. There is also no evidence for stress/emotional-eating, and scores from BES suggest minimal risk for binge eating behavior. PHQ- scores also showed no active symptoms/concerns with depression. Mental status exam is withing normal limits, suggesting person's functioning is not impaired. At this time patient is cleared from the behavioral health standpoint and is considered a great candidate for our program. Presenting Concerns Referral Source [facility] Provider. Pt sees Dr. James at [facility]. Reason for referral Completion of behavioral health assessment as part of process for weight-loss surgery. Precipitating Event -PT had bariatric surgery in another [facility] and has not been losing weight as expected, she is also dealing with thyroid issues which has not help her. -Now she is looking to a more hand-on pr ogram to get guidance and support. -Obesity. Living Situation Current Living Situation Own At risk of losing current housing? No Satisfied with current living situation? Yes Comments PT lives with her long-term partner and 4 children. Food/Weight/Diet Expectations of change The initial goal is to lose 10% of her weight before surgery, about 22lbs. Ultimate weight goal: 196lbs before surgery. Pt reports she doesn't have a specific weight number in mind, her ultimate goal is to be at a healthy place and being able to keep up with how active is her family lifestyle and feel better with her body. . Current meal plan: Doing the modest meal plan which is 1 shake divided into 2, a meal for lunch, dinner, 1 bar. Exercise: walking daily. At least 30 minutes daily. Most recent weight: 224Lbs. (04/15/24) History/Relationship with food PT denies any emotional eating but at times she feels comforted when eats. Her downfall is not planning her meals and then falling into snacks or grabbing anything available leading her to feel hungry throughout the day. Portions were normal as she was not able to have a full meal due to past bariatric surgery, so she would eat what she could and then finish the rest an hour later. Also, due to family traditions and culture, they enjoy cooking traditional [place]/ meals, and have cookouts. Sometimes after starting on a diet she starts missing these foods and falls back into old eating habits. She also enjoys cooking and its hard when everyone else its eating around her and she's not. However, Pt reports she has been educated while on this program, understanding better her body and needs, in a ways that she has adjusted patterns to feel satisfied and have limits when eating with others. Example of meals before starting the program: Breakfast: skip. Will have a coffee with sugar and cream. Lunch: leftovers from last day's dinner Dinner: Meat, rice and beans, pasta. Snacks: after lunch, a coffee with a snack. Post-dinner: gets hungry and gets another snack such as chips, crackers and cheese, or chocolate. 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 After each she gained more weight and then was not ble to lose as much afterwards. In the last 10 years: lowest 205lbs in 2017 post-bariatric surgery, highest 287. 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 She tends to stick to each for about a month and then starts feeling she can't do it as she was not seeing quick results Binge Eating Do you frequently eat large amounts of food in short periods of time, not feeling physically hungry? No Do you feel out of control when you eat a large amount of food in a short period of time? No Do you eat large amounts of food rapidly and typically alone? No Night Eating Do you wake up at least once during the night to eat? No If you wake up in the night, do you find that it is necessary to eat something in order to fall back asleep? No Do you have little or no appetite in the morning and feel very hungry in the evening, often overeating between dinner and when you go to bed? Yes Social History Family history and relationship Been with partner for 21 years, they have 4 children. PT reports a great relationship with her family. Parents are both alive, she doesn't have a relationship with them, parents have RENTERIA issues. She has 2 brothers and 3 sisters with whom she's very close. 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 Current WNL. Social support Partner, siblings. Community support None. Hindu/Spirituality Mosque, attend jewish regularly. Cultural/Ethnic information [place]. Partner is [place]. Legal Involvement and History Current or historical involvement with the legal system? None reported Education Highest grade completed GED, some college. Preferred learning style Written and Learn by doing Currently enrolled in educational program? No Interested in further educational program? Yes (wants to finish the nursing program as she finished all the pre-req. ) Educational Interests/Skills Nursing. 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 No Meaningful activities Outdoors, go for walks, kayaking, crafting, sports. Financial Situation Describe current financial situation Comfortable Financial assistance? None Service Service? No Mental Health and Addiction Treatment Current/Past substance abuse? No Comments Social alcohol use a few times at year. Current/Past addictive behavior concerns? No Psychiatric history PT has been in counseling before. She had some anxiety after her son developed epilepsy at 11months old. [id number] went to counseling. Back in 2017, she has some counseling sessions trough the bariatric program. Never took medication. Denies ever been hospitalized or inpatient for mental health, in crisis and/or at risk self self-harm/other-harm. Medical and Physical Health Summary Additional Medical History not covered in history None reported Sexual History concerns None reported Physical exam in the last year? Yes Pain Screening Current pain? Yes (knees.) Pain in the last few months? Yes (knee pain.) Medications Is the patient compliant with medications? Yes Does the patient have Carvajal Guardian in place? Not applicable Does the patient use complimentary health approaches? No Trauma/Abuse History History of trauma? No Current Involvement By None Reported Additional Mandated Report Required None Reported Questionnaires PHQ-9 Over the last 2 weeks, how often have you been bothered by any of the following problems? 1. Little interest or pleasure in doing things: not at all 2. Feeling down, depressed, or hopeless: not at all 3. Trouble falling or staying asleep, or sleeping too much: not at all 4. Feeling tired or having little energy: several days 5. Poor appetite or overeating: not at all 6. Feeling bad about yourself - or that you are a failure or have let yourself or your family down: several days 7. Trouble concentrating on things, such as reading the newspaper or watching television: not at all 8. Moving or speaking so slowly that other people could have noticed. Or the opposite - being so fidgety or restless that you have been moving around a lot more than usual: not at all 9. Thoughts that you would be better off or of hurting yourself in some way: not at all Total score: 2 Depression Screening Interpretation: Negative Depression Screening Done: Yes [id number] - PHQ-9 Billing: Yes Source: Developed by Drs. Modesto Rebolledo, Deanna Gibbs, Joni Lorenzana and colleagues, with an educational melvin from [facility]. Binge Eating Scale Group 1 A. I don't feel self-conscious about my wt. or body size when I'm with others. B. I feel concerned about how I look to others, but it normally does not make me fell disappointed with myself C. I do get self-conscious about my appearance and wt. which makes me feel disappointed in myself. D. I feel very self-conscious about my wt. and frequently I feel intense shame and disgust for myself. I try to avoid social contacts because of my self- consciousness. Response Group 1: C Group 2 A. I don't have any difficulty eating slowly in the proper manner. B. Although I seem to gobble down foods, I don't end up feeling stuffed because of eating to much. C. At times, I tend to eat quickly and then, I feel uncomfortably full afterwards. D. I have the habit of bolting down my food, without really chewing it. When this happens I usually feel uncomfortably stuffed because I've eaten to much. Response Group 2: C Group 3 A. I feel capable to control my eating urges when I want to. B. I feel like I have failed to control my eating more than the average person. C. I feel utterly helpless when it comes to feeling in control of my eating urges. D. Because I feel so helpless about controlling my eating I have become very desperate about trying to get control. Response Group 3: A Group 4 A. I don't have the habit of eating when I'm bored. B. I sometimes eat when I'm bored, but often I'm able to get busy and get my mind off food. C. I have a regular habit of eating when I'm bored, but occasionally, I can use some other activity to get my mind off eating. D. I have a strong habit of eating when I'm bored. Nothing seems to help me breath the habit. Response Group 4: B Group 5 A. I'm usually physically hungry when I eat something. B. Occasionally, I eat something on impulse even though I really am not hungry. C. I have the regular habit of eating foods, that I might not really enjoy, to satisfy a hungry feeling even though physically, I don't need the food. D. Although I'm not physically hungry, I get a hungry feeling in my mouth that only seems to be satisfied when I eat a food, like sandwich, that fills my mouth. Sometimes, when I eat the food to satisfy my mouth hunger, I then spit the food out so I won't gain weight. Response Group 5: B Group 6 A. I don't feel any guilt or self-hate after I overeat. B. After I overeat, occasionally I feel guilt or self-hate. C. Almost all the time I experience strong guilt or self-hate after I overeat. Response Group 6: B Group 7 A. I don't lose total control of my eating when dieting even after periods when I overeat. B. Sometimes when I eat a forbidden food on a diet, I feel like I blew it and eat even more. C. Frequently, I have the habit of saying to myself, I've blown it now, why not go all the way, when I overeat on a diet. When that happens I eat more. D. I have a regular habit of starting a strict diets for myself but I break the diets by going on an eating binge. My life seems to be either a feast or famine. Response Group 7: A Group 8 A. I rarely eat so much food that I feel uncomfortably stuffed afterwards. B. Usually about once a month, I each such a quantity of food, I end up feeling very stuffed. C. I have regular periods during the month when I eat large amounts of food, either at mealtime or at snacks. D. I eat so much food that I regularly feel quite uncomfortable after eating and sometimes a bit nauseous. Response Group 8: B Group 9 A. My level of calorie intake does not go up very high or go down very low on a regular basis. B. Sometimes after I overeat, I will try to reduce my caloric intake to almost nothing to compensate for the excess calories I've eaten. C. I have a regular habit of overeating during the night. It seems that my routine is not to be hungry in the morning but overeat in the evening. D. In my adult years, I have had week-long periods where I practically starve myself. This follows periods when I overeat. It seems I live a life of either feast or famine. Response Group 9: A Group 10 A. I usually am able to stop eating when I want to. I know when enough is enough. B. Every so often, I experience a compulsion to eat which I can't seem to control. C. Frequently, I experience strong urges to eat which I seem unable to control, but at other times I can control my eating urges. D. I feel incapable of controlling urges to eat. I have a fear of not being able to stop eating voluntarily. Response Group 10: A Group 11 A. I don't have any problem stopping eating when I feel full. B. I usually can stop eating when I feel full but occasionally overeat leaving me feeling uncomfortably stuffed. C. I have a problem stopping eating once I start and usually I feel uncomfortably stuffed after I eat a meal. D. Because I have a problem not being able to stop eating when I want, I sometimes have to induce vomiting to relieve my stuffed feeling. Response Group 11: A Group 12 A. I seem to eat just as much when I'm with others, Family social gatherings as when I'm by myself. B. Sometimes, when I'm with other persons, I don't eat as much as I want to eat because I'm self-conscious about my eating. C. Frequently, I eat only a small amount of food when others are present, because I'm very embarrassed about my eating. D. I feel so ashamed about overeating that I pick times to overeat when I know no one will see me. I feel like a closet eater. Response Group 12: A Group 13 A. I eat three meals a day with only an occasional between meal snack. B. I eat 3 meals a day, but I also normally snack between meals. C. When I am snacking heavily, I get in the habit of skipping regular meals. D. There are regular periods when I seem to be continually eating, with no planned meals. Response Group 13: A Group 14 A. I don't think much about trying to control unwanted eating urges. B. At least some of the time, I feel my thoughts are pre-occupied with trying to control my eating urges. C. I feel that frequently I spend much time thinking about how much I ate or about trying not to eat anymore. D. It seems to me that most of my waking hours are pre-occupied by thoughts about eating or not eating. I feel like I'm constantly struggling not to eat. Response Group 14: B Group 15 A. I don't think about food a great deal. B. I have strong craving for food but they last only for brief periods of time. C. I have days when I can't seem to think about anything else but food. D. Most of my days seem to be pre-occupied with thoughts about food. I feel like I live to eat. Response Group 15: A Group 16 A. I usually know whether or not I'm physically hungry. I take the right portion of food to satisfy me. B. Occasionally, I feel uncertain about knowing whether or not I'm physically hungry. A these times it's hard to know how much food I should take to satisfy me. C. Even though I might know how many calories I should eat, I don't have any idea what is a normal amount of food for me. Response Group 16: A Binge Eating Score: 9 Score less than 17 Minimal Risk Score between 18-26 Moderate Risk Score between 27-46 High Risk Assessment & Plan Assessment & Plan (1) Adjustment disorder: Code(s): F43.20 - Adjustment disorder, unspecified Qualifiers: Adjustment disorder type: unspecified type Qualified Code(s): F43.20 - Adjustment disorder, unspecified Plan: PT has been cleared and does not need any additional sessions pre or post-op unless she wants. PT has been advised of available supports pot-op, including facebook group, group therapy and peer support group. Telehealth Telehealth [facility] Location of provider rendering services: other (Home office. [place], [place]) Location of patient: address on file Patient Identification confirmed using: Name, : Yes Telehealth method: voice only Patient verbally consented to treatment: Yes Patient verbally consented to billing insurance company: Yes Patient informed of any privacy concerns related to visit: No Minutes spent on Phone/Video with Pt.: 45 Coding Level of Care Code New Pt Tele Psy Diag Eval (24892) Patient Type New Diagnoses Adjustment disorder, unspecified type F43.20 Adjustment disorder type: unspecified type Time Spent (min) 45
== END ==
LOC: HO.HBST 13:40
PROVIDERS: PCP Internal Medicine; Visit Provider Counselor Mental Health
DX: F43.20 Adjustment disorder, unspecified (principal)
CPT/HCPCS: 90791

== ENCOUNTER 2024-11-20 10:30 | Outpatient (REF) | payer OTHER, SELFPAY ==
--- OUTSIDE RECORDS SUMMARY | 2024-11-20 11:50 | XMS_ITS ---
[facility] History of Medication Use Medication Directions Dispensed Refills Start Date End Date Stat us proMETHAZINE-dextromet horphan (proMETHAZINE-DM) 6.25-15 MG/5ML syrup Take 2.5 mL by mouth every 4 (four) hours as needed for cough. 09/10/2024 active cholecalciferol (CHOLECALCIFEROL) 125 MCG (5000 UT) capsule Take by mouth. 04/15/2024 active OMEprazole (PriLOSEC) 20 MG capsule Take by mouth. 02/16/2024 active albuterol (PROVENTIL HFA; VENTOLIN HFA) 108 (90 Base) MCG/ACT inhaler Inhale 2 puffs 4 times daily (every 6 hours) as needed for wheezing. 05/15/2024 09/10/2024 active ferrous sulfate 325 (65 FE) MG tablet Take 1 tablet by mouth. 04/26/2024 active Vitron-C 65-125 MG Tab TAKE 1 TAB ORALLY DAILY SWALLOW WHOLE DO NOT CHEW/BREAK/DISSOL VE/OPEN 04/15/2024 active Problems Problem Status Onset Date Problem Type Date of Resoluti on Source Viral URI active [facility] active [facility] Encounters Encounter Type Encounter Reason Primary Diagnosis Location Date Ambulatory Acute cough Acute cough [facility] 09/10/2024 Ambulatory Cough [facility]ough [facility] 09/10/2024 Ambulatory COVID-19 COVID-19 [facility] 05/15/2024 Care Team Organization Name Specialty Phone Email Start Date End [facility] 05/15/2024 11/08/2024 [facility] NO PCP Primary Care 05/15/2024 [facility] 05/15/2024
--- OUTSIDE RECORDS SUMMARY | 2024-11-20 11:50 | XMS_ITS | Clinical Summary ---
Author Organization [facility] Address [address] [place] [address] Care Team Providers Care Building Construction Contractor Name Role Phone David Wilcox MD Primary Care Provider [phone] Allergies Active Allergy Reactions Criticality Noted Date Comments Benzoin Compound 04/08/2022 Steri-strip Compound Benzoin [Benzoin Compound Tincture] Steri stirp causes bad rash Levofloxacin High 05/05/2019 Levaquin Other Reaction(s): Myalgia and Joint Pain Other 02/02/2011 Seasonal Allergies Medications levothyroxine (SYNTHROID, LEVOTHROID) 25 mcg tablet TAKE 1 TABLET BY MOUTH FOUR TIMES A WEEK AND 2 TABLETS THREE TIMES A WEEK. DO ALL THIS FOR 180 DAYS. 4 Active multivit-min/iron /folic acid/K (ADULTS MULTIVITAMIN ORAL) Multiple Vitamin (Multivitamin Adult) Tab 9 Active cholecalciferol (VITAMIN D-3) 125 mcg (5,000 unit) capsule Take 1 capsule (5,000 Units total) by mouth 1 (one) time each day. 4 Active cyanocobalamin, vitamin B-12, 1,000 mcg tablet, sublingual Place 1,000 mcg under the tongue 1 (one) time each day. 4 Active ferrous sulfate 325 mg (65 mg elemental iron) tablet Take 1 tablet (325 mg total) by mouth 1 (one) time each day. 3 Active Vitron-C 65 mg iron- 125 mg tablet,delayed release (DR/EC) TAKE 1 TAB ORALLY DAILY SWALLOW WHOLE DO NOT CHEW/BREAK/DI SSOLVE/OPEN 4 Active vitamin A 3,000 mcg (10,000 unit) capsule Take 1 capsule (10,000 Units total) by mouth 1 (one) time each day. 4 Active Active Problems Problem Noted Date Diagnosed Date Gastroesophageal reflux disease without esophagi tis 01/27/2018 Obesity (BMI 30-39.9) 01/27/2018 Hepatomegaly 03/26/2017 Hypothyroidism 02/07/2016 Eczema 06/19/2015 Encounters Date Type Department Care Team Description 09/14/2024 8:15 AM EST Office Visit Internal Medicine - [address] [phone] David Wilcox MD Memory loss (Primary Dx); Hypothyroidism, unspecified type; Abnormal CBC 09/14/2024 Telephone Internal Medicine - [address] [phone] David Wilcox MD Arm Pain from Last 3 Months Immunizations Name Administration Dates Next Due Hepatitis B (Bwergpg-M-Gwule , Recombivax HB-Adult) 19yo and older 12/13/2017,07/19/2017,06/14/2017 Influenza Quadravalent, MDCK , 0.5ml, preservative free (Flucelvax) 6mo and older 06/24/2018 MMR, measles mumps and rubel la Live (Priorix; M-M-R II) 12mo and older 12/10/2012 Meningococcal MCV4P 01/26/2018 Tdap Tetanus diptheria acell ular pertussis (Boostrix; Adacel) 7yo and older 04/03/2014,08/29/2012,02/02/2011 Surgical History Surgery Date Site/Laterality Comments TONSILLECTOMY PROCEDURE: HISTORICAL TONSILLECTOMY ADENOIDECTOMY PROCEDURE: HISTORICAL ADENOIDECTOMY SECTION PROCEDURE: HISTORICAL ; COMMENT: x4 CHOLECYSTECTOMY PROCEDURE: HISTORICAL CHOLECYSTECTOMY BARIATRIC SURGERY PROCEDURE: WI LAPS GSTRC RSTRICTIV PX LONGITUDINAL GASTRECTOMY; COMMENT: sleeve gastrectomy OTHER SURGICAL HISTORY 02/04/2022 PROCEDURE: SKIN TISSUE BIOPSY SPCMN PATHOLOGY EXAM; COMMENT: excision left posterior shoulder (dermatofibroma), right upper back (epidermal inclusion cyst), right posterolateral knee (plexiform fibrohistiocytic tumor) Medical History Medical History Date Comments Anxiety state, unspecified DX:An xiety state, unspecified Gastroesophageal reflux dise ase without esophagitis 01/27/2018 DX:Gastroesophageal reflux d isease without esophagitis Hypothyroidism DX:Hypothyroidis m Hypothyroidism 02/07/2016 Family History Medical History Relation Name Comments Other: Other Other Diabetes Paternal Grandfather Other: basal cell carcinoma of skin Sister Blindness Neg Hx Cataracts Neg Hx Glaucoma Neg Hx Macular degeneration Neg Hx Strabismus Neg Hx Relation Name Status Comments Father Alive cirrhosis Mother Alive fibromylagia, l upus Other Paternal Grandfather Sister Social History Tobacco Use Types Packs/Day Years Used Date Smoking Tobacco: Never Smokeless Tobacco: Never Tobacco Cessation:Counseling Given: Not Answered Alcohol Use Standard Drinks/Week Comments Yes 0 (1 standard drink = 0.6 oz pur e alcohol) Comments No Sex and Gender Information Value Date Recorded Sex Assigned at Not on file Legal Sex Female 9:31 PM EST Gender Identity Not on file Sexual Orientation Not on file Obstetrics History Last Filed Vital Signs Vital Sign Reading Time Taken Comments Blood Pressure 129/86 09/14/2024 8:10 AM EST Pulse 78 09/14/2024 8:10 AM EST Temperature - - Respiratory Rate - - Oxygen Saturation - - Inhaled Oxygen Concentration - - Weight 99.5 kg (219 lb 4.8 oz) 09/14/2024 8:10 A M EST Height 160 cm (5' 3 ) 09/14/2024 8:10 AM EST Body Mass Index 38.85 09/14/2024 8:10 AM EST Plan of Treatment Health Maintenance Due Date Last Done Comments Breast Cancer Screening 1983 Pneumococcal Vaccine: Pediatrics (0 to 5 Years) and At-Risk Patients (6 to 64 Years) (1 of 2 - PCV) 2002 Cervical Cancer Screening: P ap Smear 10/21/2013 10/21/2010 Depression Screening 08/05/2020 HIV Screening 08/05/2020 Social Influencers of Health Screening 08/05/2020 COVID-19 Vaccine (3 - Modern a risk series) 01/29/2021 01/01/2021, 12/04/2020 DTaP,Tdap,and Td Vaccines (4 - Td or Tdap) 04/03/2024 04/03/2014, 08/29/2012, 02/02/2011 Influenza Vaccine (#1) 2024 06/24/2018 Cholesterol Screening (Lipid Panel) 11/12/2027 11/11/2022 MMR Vaccines Aged Out 12/10/2012 No longer eligi ble based on patient's age to complete this topic Hepatitis C Screening Completed 04/05/2017 Hepatitis B Vaccines Completed 12/13/2017, 07/19/2017, 06/14/2017 Meningococcal ACWY Vaccine Aged Out 01/26/2018 N o longer eligible based on patient's age to complete this topic HIB Vaccines Aged Out No longer eligi ble based on patient's age to complete this topic HPV Vaccines Aged Out No longer eligi ble based on patient's age to complete this topic Hepatitis A Vaccines Aged Out No long er eligible based on patient's age to complete this topic IPV Vaccines Aged Out No longer eligi ble based on patient's age to complete this topic Meningococcal B Vacine Aged Out No lo nger eligible based on patient's age to complete this topic RSV Immunization Patients Under 20 months Aged Out No longer eligible b ased on patient's age to complete this topic Varicella Vaccines Aged Out No longer eligible based on patient's age to complete this topic Procedures Procedure Name Priority Date/Time Associated Diagnosis Comments TREPONEMA PALLIDUM ANTIBODY WITH REFLEX TO RPR AND PARTICLE AGGLUTINATION Routine 09/14/2024 8:56 AM EST Memory loss FOLATE Routine 09/14/2024 8:56 AM EST Memory loss THYROID STIMULATING HORMONE WITH REFLEX TO FREE T4 AND FREE T3 Routine 09/14/2024 8:56 AM EST Memory loss Hypothyroidism, unspecified type VITAMIN B12 Routine 09/14/2024 8:56 AM EST Memory loss VITAMIN D 25 HYDROXY Routine 09/14/2024 8:56 AM EST Memory loss COMPLETE BLOOD COUNT Routine 09/14/2024 8:56 AM EST Abnormal CBC IRON AND TIBC Routine 09/14/2024 8:56 AM EST Memory loss Hypouricemia FERRITIN Routine 09/14/2024 8:56 AM EST Memory loss Hypouricemia HOMOCYSTEINE, SERUM Routine 09/14/2024 8 :56 AM EST Memory loss Hypouricemia LIPID PANEL Routine 11/11/2022 HEPATITIS C SCREENING Routine 04/05/2017 HM PAP SMEAR Routine 10/21/2010 from Last 3 Months or Most Recently Relevant to Health Maintenance Results * Treponema pallidum antibody with reflex to RPR and particle agglutination (09/14/2024 8:56 AM EST) Pathologist [facility] T. Pallidum Antibodies Negative Negative LAB CHEMISTRY METHOD 09/14/2024 1:33 PM EST [facility] Blood Venous blood specimen / Unknown Venipuncture / Unknown 09/14/2024 8:56 AM EST 09/14/2024 8:56 AM EST us David Wilcox MD LAB BLOOD ORDERABLES Final Res ult Performing Organization Address City/[facility]/ZIP Co de Phone Number [facility] [address] [place] [address], [place] [phone] * Thyroid stimulating hormone with reflex to free t4 and free t3 (09/14/2024 8:56 AM EST) Pathologist [facility] TSH 2.07 0.40 - 4.00 mcIU/mL LAB CHEMISTRY METHOD 09/14/2024 1:18 PM EST [facility] Blood Venous blood specimen / Unknown Venipuncture / Unknown 09/14/2024 8:56 AM EST 09/14/2024 8:56 AM EST us David Wilcox MD LAB BLOOD ORDERABLES Final Res ult [facility] [address] [place] [address], [place] [phone] * Iron and TIBC (09/14/2024 8:56 AM EST) Pathologist [facility] Iron 46 40 - 150 mcg/dL LAB CHEMISTRY METHOD 09/14/2024 1:11 PM EST [facility] TIBC 286 250 - 450 mcg/dL LAB CHEMISTRY METHOD 09/14/2024 1:11 PM EST [facility] Iron Saturation 16 15 - 50 % LAB CHEMISTRY METHOD 09/14/2024 1:11 PM [facility] Blood Venous blood specimen / Unknown Venipuncture / Unknown 09/14/2024 8:56 AM EST 09/14/2024 8:56 AM EST us David Wilcox MD LAB BLOOD ORDERABLES Final Res ult Performing Organization Address City/[facility]/ZIP Co de Phone Number [facility] [address] [place] [address], [place] [phone] * Vitamin D 25 hydroxy (09/14/2024 8:56 AM EST) [facility] Vit D, 25-Hydroxy 47.6 30.0 - 80.0 ng/mL LAB CHEMISTRY METHOD 09/14/2024 1:18 PM EST [facility] Blood Venous blood specimen / Unknown Venipuncture / Unknown 09/14/2024 8:56 AM EST 09/14/2024 8:56 AM EST us David Wilcox MD LAB BLOOD ORDERABLES Final Res ult [facility] [address] [place] [address], [place] [phone] * (ABNORMAL) Complete blood count (09/14/2024 8:56 AM EST) [facility] WBC 7.6 4.8 - 10.8 K/mcL LAB HEMETOLOGY METHOD 09/14/2024 12:26 PM [facility] RBC 5.40(H) 3.80 - 4.80 M/mcL LAB HEMETOLOGY METHOD 09/14/2024 12:26 PM [facility] Hemoglobin 14.2 11.5 - 16.0 g/dL LAB HEMETOLOGY METHOD 09/14/2024 12:26 PM [facility] Hematocrit 44.9 35.0 - 47.0 % LAB HEMETOLOGY METHOD 09/14/2024 12:26 PM [facility] MCV 82.5 79.0 - 98.0 FL LAB HEMETOLOGY METHOD 09/14/2024 12:26 PM [facility] MCH 26.1(L) 27.0 - 32.0 pcg LAB HEMETOLOGY METHOD 09/14/2024 12:26 PM [facility] MCHC 31.6(L) 32.0 - 37.0 g/dL LAB HEMETOLOGY METHOD 09/14/2024 12:26 PM [facility] RDW 13.0 11.0 - 15.0 % LAB HEMETOLOGY METHOD 09/14/2024 12:26 PM [facility] Platelets 267 130 - 400 K/mcL LAB HEMETOLOGY METHOD 09/14/2024 12:26 PM [facility] MPV 11.5(H) 7.0 - 11.0 FL LAB HEMETOLOGY METHOD 09/14/2024 12:26 PM [facility] NRBC 0.0 <1.0 % LAB HEMETOLOGY METHOD 09/14/2024 12:26 PM [facility] NRBC Absolute 0.00 <0.10 K/mcL LAB HEMETOLOGY METHOD 09/14/2024 12:26 PM [facility] Blood Venous blood specimen / Unknown Venipuncture / Unknown 09/14/2024 8:56 AM EST 09/14/2024 8:56 AM EST us David Wilcox MD LAB BLOOD ORDERABLES Final Res ult Performing Organization Address [facility]/ZIP Co de Phone Number [facility] [address] [place] [address], [place] [phone] * Homocysteine, total (09/14/2024 8:56 AM EST) [facility] Homocysteine 9.2 3.2 - 10.7 mcmol/L LAB CHEMISTRY METHOD 09/14/2024 1:34 PM EST [facility] Blood Venous blood specimen / Unknown Venipuncture / Unknown 09/14/2024 8:56 AM EST 09/14/2024 8:56 AM EST us David Wilcox MD LAB BLOOD ORDERABLES Final Res ult Performing Organization Address [facility] Co de Phone Number [facility] [address] [place] [address], [place] [phone] * (ABNORMAL) Folate (09/14/2024 8:56 AM EST) [facility] Folate 18.3(H) 2.8 - 17.0 ng/ml LAB CHEMISTRY METHOD 09/14/2024 1:34 PM EST [facility] Blood Venous blood specimen / Unknown Venipuncture / Unknown 09/14/2024 8:56 AM EST 09/14/2024 8:56 AM EST us David Wilcox MD LAB BLOOD ORDERABLES Final Res ult Performing Organization Address City/[facility]/ZIP Co de Phone Number [facility] [address] [place] [address], [place] [phone] * Ferritin (09/14/2024 8:56 AM EST) [facility] Ferritin 49 8 - 252 ng/mL LAB CHEMISTRY METHOD 09/14/2024 1:34 PM EST [facility] Blood Venous blood specimen / Unknown Venipuncture / Unknown 09/14/2024 8:56 AM EST 09/14/2024 8:56 AM EST us David Wilcox MD LAB BLOOD ORDERABLES Final Res ult Performing Organization Address City/[facility]/ZIP Co de Phone Number [facility] [address] [place] [address], [place] [phone] * (ABNORMAL) Vitamin B12 (09/14/2024 8:56 AM EST) [facility] Vitamin B-12 1,133(H) 250 - 900 pcg/mL LAB CHEMISTRY METHOD 09/14/2024 1:34 PM EST [facility] Blood Venous blood specimen / Unknown Venipuncture / Unknown 09/14/2024 8:56 AM EST 09/14/2024 8:56 AM EST us David Wilcox MD LAB BLOOD ORDERABLES Final Res ult Performing Organization Address City/[facility]/ZIP Co de Phone Number [facility] [address] [place] [address], [place] [phone] * Lipid panel (11/11/2022) [facility] LDL/HDL Ratio 2 0 - 4 Triglycerides 99 0 - 150 mg/dL Cholesterol 141 0 - 200 mg/dL HDL 63 >=40 mg/dL LDL Cholesterol 59 0 - 100 mg/dL Blood Venous blood specimen / Unknown us Historical Provider LAB BLOOD ORDERABLES Gay l Result * Hepatitis C Screening (04/05/2017) [facility] Hepatitis C Screening abstracted us Historical Provider HEALTH MAINTENANCE Final Result * Pap Smear (10/21/2010) HM Pap smear no interpretation , abstracted us Historical Provider HEALTH MAINTENANCE Final Result from Last 3 Months or Most Recently Relevant to Health Maintenance Insurance [employer] Care Teams Building Construction Contractor Relationship Specialty Start Date End Date David Wilcox MD [address] [place] [phone] PCP - General Internal Medicine 09/12/24
--- OUTSIDE RECORDS SUMMARY | 2024-11-20 11:50 | XMS_ITS | Clinical Summary ---
Author Organization [facility] Address [address] [place] [address] Care Team Providers Care Database Engineer Name Role Phone Pcp, No Primary Care Provider Unavailabl e Allergies Active Allergy Reactions Criticality Noted Date Comments Benzoin Rash/Dermatitis Low 04/08/2022 Steri-strip Compound Benzoin [Benzoin Compound Tincture] Steri stirp causes bad rash Levofloxacin Myalgia/Myositis/Art hral vandana/Arthritis High 05/05/2019 Medications Medication Sig Dispensed Refills Start Date End Date Status levothyroxine (SYNTHROID, LEVOTHROID) 25 MCG tablet TAKE 1 TABLET BY MOUTH FOUR TIMES A WEEK AND 2 TABLETS THREE TIMES A WEEK. DO ALL THIS FOR 180 DAYS. 02/17/2024 Active Vitron-C 65-125 MG Tab TAKE 1 TAB ORALLY DAILY SWALLOW WHOLE DO NOT CHEW/BREAK/DISSOLV E/OPEN 04/15/2024 Active Cyanocobalamin (Vitamin B-12) [address] 1 TABLET UNDER TONGUE AND ALLOW TO DISSOLVE FOR AT LEAST 30 SECS BEFORE SWALLOWING ONCE DAILY 04/15/2024 Active cholecalciferol (CHOLECALCIFEROL) 125 MCG (5000 UT) capsule Take by mouth. 04/15/2024 Active ferrous sulfate 325 (65 FE) MG tablet Take 1 tablet by mouth. 04/26/2024 Active vitamin A 3,000 mcg (10,000 unit) capsule Take by mouth. 05/02/2024 Active OMEprazole (PriLOSEC) 20 MG capsule Take by mouth. 02/16/2024 Active albuterol (PROVENTIL HFA; VENTOLIN HFA) 108 (90 Base) MCG/ACT inhalerIndications: Acute cough Inhale 2 puffs 4 times daily (every 6 hours) as needed for wheezing. 1 each 09/10/2024 Active benzonatate (TESSALON) 200 MG capsuleIndications: Acute cough Take 1 capsule (200 mg total) by mouth 3 (three) times a day as needed for cough. 20 capsule 09/10/2024 Active proMETHAZINE-dextro methorphan (proMETHAZINE-DM) 6.25-15 MG/5ML syrupIndications:Ac isak cough Take 2.5 mL by mouth every 4 (four) hours as needed for cough. 120 mL 09/10/2024 Active Active Problems No known active problems Encounters Date Type Department Care Team Description 09/10/2024 12:53 PM EST Hospital Encounter [facility] [address] [facility] [place] [phone] Acute cough 09/10/2024 11:25 AM EST Office Visit [facility] [place] [address] [facility] [place] [address] Anthony Talley MD de Villier, Daryl, PAVinicius Acute cough (Primary Dx); Viral URI 09/10/2024 Travel 09/10/2024 Scanned Document [address] [place] [phone] Provider, Generic from Last 3 Months Social History Tobacco Use Types Packs/Day Years Used Date Smoking Tobacco: Never Smokeless Tobacco: Never Sex and Gender Information Value Date Recorded Sex Assigned at Not on file Gender Identity Not on file Sexual Orientation Not on file Last Filed Vital Signs Vital Sign Reading Time Taken Comments Blood Pressure 139/86 09/10/2024 12:33 PM EST Pulse 83 09/10/2024 12:33 PM EST Temperature 36.9 ??C (98.5 ??F) 09/10/2024 12:[address] Respiratory Rate 16 09/10/2024 12:33 PM EST Oxygen Saturation 97% 09/10/2024 12:33 PM EST Inhaled Oxygen Concentration - - Weight - - Height - - Body Mass Index - - Plan of Treatment Health Maintenance Due Date Last Done Comments Hepatitis C Virus Screening 1983 HIV Screening 1996 DTaP/Tdap/Td Vaccines (1 - Tdap) 2002 Hepatitis B Vaccines (1 of 3 - 19+ 3-dose series) 2002 Pap Smear (Ages 21-65) 2004 Mammogram 2023 Influenza Vaccine 03/23/2024 06/24/2018 COVID-19 Vaccine (2023-2 5 season) 2024 10/21/2021, 01/01/2021, 12/04/2020 HPV Vaccines Aged Out No longer eligi ble based on patient's age to complete this topic Pneumococcal Vaccine: Pediatric (0-5 Years) and At-Risk Patients (6 to 49 Years) Aged Out No longer eligible b ased on patient's age to complete this topic Procedures Procedure Name Priority Date/Time Associated Diagnosis Comments POCT RAPID COVID-19 AG (FDA EUA) Routine 09/10/2024 1:10 PM EST Acute cough POCT RAPID INFLUENZA Routine 09/10/2024 1:10 PM EST Acute cough XR CHEST 2 VIEWS STAT 09/10/2024 1:03 PM EST Acute cough from Last 3 Months Results * POCT Rapid COVID-19 Antigen (FDA EUA) (09/10/2024 1:10 PM EST) COVID-19 Rapid Antigen, POC (FDA EUA) Negative Result Comments: A Positive Result does not rule out bacterial infection or co-infection with other viruses. Clinical correlation advised. A Negative Result in symptomatic patients should be considered presumptive and needs confirmation by PCR. Kit Lot Number 0 Roll Up Guider Operator Pass Pass Swab, Nasal Specimen from nose / Unknown 09/10/2024 1:10 PM EST Henri Nava PA-C POINT OF CARE TEST ORDERABLES * POCT Rapid Influenza (09/10/2024 1:10 PM EST) Inflenza A Ag Negative Negative Influenza B Ag Negative Negative Nasopharyngeal 09/10/2024 1: 10 PM EST Henri de Stanleyer PA-C POINT OF CARE TEST ORDERABLES * XR Chest 2 views (09/10/2024 1:03 PM EST) Anatomical Region Laterality Modality Chest Computed Radiogr aphy 09/10/2024 1:05 PM EST Impressions 09/10/2024 1:06 PM EST No acute cardiopulmonary disease. Narrative 09/10/2024 1:06 PM EST Frontal and lateral chest films, no prior for comparison HISTORY: Low-grade fever, cough starting on Wednesday. ??Describes low back discomfort. ??Rule out lower lobar pneumonia FINDINGS: The cardiomediastinal silhouette is normal. ??The lung james are clear with no consolidation or effusion. ??Osseous structures are intact. Procedure Note Denny Rodarte MD - 09/10/2024 Frontal and lateral chest films, no prior for comparison HISTORY: Low-grade fever, cough starting on Wednesday. Describes low backdiscomfort. Rule out lower lobar pneumonia FINDINGS: The cardiomediastinal silhouette is normal. The lung james areclear with no consolidation or effusion. Osseous structures are intact. IMPRESSION: No acute cardiopulmonary disease. Henri Nava PA-C [facility] ORDERABLES from Last 3 Months Care Teams Database Engineer Relationship Specialty Start Date End Date Pcp, No PCP - General General Medicine 04/23/24
--- OUTSIDE RECORDS SUMMARY | 2024-11-20 11:50 | XMS_ITS | Encounter Summary ---
Author Organization [facility] Address [address] [place] [address] Care Team Providers Care Editor Department Name Role Phone Pcp, No Primary Care Provider Unavailabl e Encounter Details Date Type Department Care Team (Late st Contact Info) Description 09/10/2024 12:53 PM EST Hospital Encounter [facility] [address] [place] [address] Acute cough Social History Tobacco Use Types Packs/Day Years Used Date Smoking Tobacco: Never Smokeless Tobacco: Never Sex and Gender Information Value Date Recorded Sex Assigned at Not on file Gender Identity Not on file Sexual Orientation Not on file documented as of this encounter Plan of Treatment Not on file documented as of this encounter Procedures Procedure Name Priority Date/Time Associated Diagnosis Comments XR CHEST 2 VIEWS STAT 09/10/2024 1:03 PM EST Acute cough documented in this encounter Results * XR Chest 2 views (09/10/2024 1:03 [...] cardiopulmonary disease. Henri Nava PA-C [facility] ORDERABLES documented in this encounter Visit Diagnoses Diagnosis Acute cough documented in this encounter Care Teams Editor Department Relationship Specialty Start Date End Date Pcp, No PCP - General General Medicine 04/23/24 documented as of this encounter
--- OUTSIDE RECORDS SUMMARY | 2024-11-20 11:50 | XMS_ITS | Encounter Summary ---
Author Organization [facility] Address [address] [place] [address] Care Team Providers Care Truck Car And Bus Cleaner Name Role Phone Pcp, No Primary Care Provider Unavailabl e Encounter Details Date Type Department Care Team (Late st Contact Info) Description 09/10/2024 Scanned Document [address] [place] [address] [phone] Provider, Generic Social History Tobacco Use Types Packs/Day Years Used Date Smoking Tobacco: Never Smokeless Tobacco: Never Sex and Gender Information Value Date Recorded Sex Assigned at Not on file Gender Identity Not on file Sexual Orientation Not on file documented as of this encounter Plan of Treatment Not on file documented as of this encounter Visit Diagnoses Not on filedocumented in this encounter Care Teams Truck Car And Bus Cleaner Relationship Specialty Start Date End Date Pcp, No PCP - General General Medicine 04/23/24 documented as of this encounter
--- OUTSIDE RECORDS SUMMARY | 2024-11-20 11:50 | XMS_ITS | Encounter Summary ---
Author Organization [facility] Address [address] [place] [address] Care Team Providers Care Orthopedic Specialist Name Role Phone Pcp, No Primary Care Provider Unavailabl e Encounter Details Date Type Department Care Team (Late st Contact Info) Description 05/15/2024 Scanned Document [address] [place] [address] [phone] Provider, Generic Social History Tobacco Use Types [...] on filedocumented in this encounter Care Teams Orthopedic Specialist Relationship Specialty Start Date End Date Pcp, No PCP - General General Medicine 04/23/24 documented as of this encounter
--- OUTSIDE RECORDS SUMMARY | 2024-11-20 11:50 | XMS_ITS | Encounter Summary ---
Author Organization [facility] Address [address] [place] [address] Care Team Providers Care Pin Pusher Name Role Phone Pcp, No Primary Care Provider Unavailabl e Encounter Details Date Type Department Care Team (Late st Contact Info) Description 05/15/2024 Scanned Document [address] [place] [address] [phone] Provider, Generic Social History Tobacco Use Types [...] on filedocumented in this encounter Care Teams Pin Pusher Relationship Specialty Start Date End Date Pcp, No PCP - General General Medicine 04/23/24 documented as of this encounter
[2024-11-20 12:20] LABS: Vitamin B12 741 pg/mL (200-900)
== END 2024-11-20 10:31 | disposition home or self-care (01) ==
LOC: HO.LAB 10:30
PROVIDERS: PCP Internal Medicine; Visit Provider Psychiatry & Neurology Neurology
DX: G93.40 Encephalopathy, unspecified (principal)
CPT/HCPCS: 36415; 82607

== ENCOUNTER 2024-12-18 08:11 | Outpatient (AMB) | payer OTHER, SELFPAY ==
--- OUTSIDE RECORDS SUMMARY | 2024-12-18 08:24 | XMS_ITS | Encounter Summary ---
Author Organization [facility] Address [address] [place] [address] Care Team Providers Care Nutrition Services Worker Name Role Phone Pcp, No Primary Care Provider Unavailabl e Encounter Details Date Type Department Care Team (Late st Contact Info) Description 05/15/2024 Scanned Document [address] [place] [address] [phone] Provider, Generic Social History Tobacco Use Types Packs/Day Years Used Date Smoking Tobacco: Never Smokeless Tobacco: Never Comments Unknown Sex and Gender Information Value Date Recorded Sex Assigned at Not on file Legal Sex Female 10:17 AM EDT Gender Identity Not on file Sexual Orientation Not on file documented as of this encounter Plan of Treatment Not on file documented as of this encounter Visit Diagnoses Not on filedocumented in this encounter Care Teams Nutrition Services Worker Relationship Specialty Start Date End Date Pcp, No PCP - General General Medicine 04/23/24 documented as of this encounter
--- OUTSIDE RECORDS SUMMARY | 2024-12-18 08:24 | XMS_ITS | Encounter Summary ---
Author Organization [facility] Address [address] [place] [address] Care Team Providers Care Veterans Service Officer Name Role Phone Pcp, No Primary Care Provider Unavailabl e Encounter Details Date Type Department Care Team (Late st Contact Info) Description 09/10/2024 12:53 PM EST Hospital Encounter [facility] [address] [place] [address] Acute cough Social History Tobacco [...] comparison HISTORY: Low-grade fever, cough starting on Tc. Describes low backdiscomfort. Rule out lower lobar pneumonia FINDINGS: The cardiomediastinal silhouette is normal. The lung james areclear with no consolidation or effusion. Osseous structures are intact. IMPRESSION: No acute cardiopulmonary disease. us Henri Nava PA-C IMG DIAGNOSTIC IMAGING ORD ERABLES Final Result documented in this encounter Visit Diagnoses Diagnosis Acute cough documented in this encounter Care Teams Veterans Service Officer Relationship Specialty Start Date End Date Pcp, No PCP - General General Medicine 04/23/24 documented as of this encounter
--- OUTSIDE RECORDS SUMMARY | 2024-12-18 08:24 | XMS_ITS | Encounter Summary ---
Author Organization [facility] Address [address] [place] [address] Care Team Providers Care Director Export Name Role Phone Pcp, No Primary Care Provider Unavailabl e Encounter Details Date Type Department Care Team (Late st Contact Info) Description 05/15/2024 Scanned Document [address] [place] [address] [phone] Provider, Generic Social History Tobacco Use Types [...] on filedocumented in this encounter Care Teams Director Export Relationship Specialty Start Date End Date Pcp, No PCP - General General Medicine 04/23/24 documented as of this encounter
--- OUTSIDE RECORDS SUMMARY | 2024-12-18 08:24 | XMS_ITS | Clinical Summary ---
Author Organization [facility] Address [address] [place] [address] Care Team Providers Care Magazine Publisher Name Role Phone Pcp, No Primary Care Provider Unavailabl e Allergies Active Allergy Reactions Criticality Noted Date Comments Benzoin Rash/Dermatitis Low 04/08/2022 Steri-strip Compound Benzoin [Benzoin Compound Tincture] Steri stirp causes bad rash Levofloxacin Myalgia/Myositis/Art hral vandana/Arthritis High 05/05/2019 Medications levothyroxine (SYNTHROID, LEVOTHROID) 25 MCG tablet TAKE 1 TABLET BY MOUTH FOUR TIMES A WEEK AND 2 TABLETS THREE TIMES A WEEK. DO ALL THIS FOR 180 DAYS. 4 Active Vitron-C 65-125 MG Tab TAKE 1 TAB ORALLY DAILY SWALLOW WHOLE DO NOT CHEW/BREAK/DISS OLVE/OPEN 4 Active Cyanocobalamin (Vitamin B-12) [address] 1 TABLET UNDER TONGUE AND ALLOW TO DISSOLVE FOR AT LEAST 30 SECS BEFORE SWALLOWING ONCE DAILY 4 Active cholecalciferol (CHOLECALCIFERO L) 125 MCG (5000 UT) capsule Take by mouth. 4 Active ferrous sulfate 325 (65 FE) MG tablet Take 1 tablet by mouth. 4 Active vitamin A 3,000 mcg (10,000 unit) capsule Take by mouth. 4 Active OMEprazole (PriLOSEC) 20 MG capsule Take by mouth. 4 Active albuterol (PROVENTIL HFA; VENTOLIN HFA) 108 (90 Base) MCG/ACT inhalerIndicati ons:Acute cough Inhale 2 puffs 4 times daily (every 6 hours) as needed for wheezing. 1 each 5 Active benzonatate (TESSALON) 200 MG capsuleIndicati ons:Acute cough Take 1 capsule (200 mg total) by mouth 3 (three) times a day as needed for cough. 20 capsule 5 Active proMETHAZINE-de xtromethorphan (proMETHAZINE-D M) 6.25-15 MG/5ML syrupIndication s:Acute cough Take 2.5 mL by mouth every 4 (four) hours as needed for cough. 120 mL 5 Active Active Problems No known active problems Social History Tobacco Use Types Packs/Day Years [...] on patient's age to complete this topic Insurance [facility] H[facility] Care Teams Magazine Publisher Relationship Specialty Start Date End Date Pcp, No PCP - General General Medicine 04/23/24
--- OUTSIDE RECORDS SUMMARY | 2024-12-18 08:24 | XMS_ITS | Encounter Summary ---
Author Organization [facility] Address [address] [place] [address] Care Team Providers Care Automobile Service Station Manager Name Role Phone Pcp, No Primary Care Provider Unavailabl e Encounter Details Date Type Department Care Team (Late st Contact Info) Description 09/10/2024 Scanned Document [address] [place] [address] [phone] Provider, Generic Social History Tobacco Use Types [...] on filedocumented in this encounter Care Teams Automobile Service Station Manager Relationship Specialty Start Date End Date Pcp, No PCP - General General Medicine 04/23/24 documented as of this encounter
--- OUTSIDE RECORDS SUMMARY | 2024-12-18 08:24 | XMS_ITS | Clinical Summary ---
Author Organization Patient Business Ser [facility] Address [address] [place] [address] Care Team Providers Care Spool Salvager Name Role Phone David Wilcox MD Primary Care Provider [phone] Allergies Active Allergy Reactions Criticality Noted Date [...] Encounters Date Type Department Care Team Description 12/06/2024 4:00 PM EDT - 12/06/2024 11:59 PM EDT Hospital Encounter [facility] MRI [address] [place] [address] Encephalopathy, unspecified Discharge Disposition: Home or Self Care 12/05/2024 Telephone Internal Medicine - [address] [place] [address] David Wilcox MD thumb pain from Last 3 Months Immunizations Name Administration Dates Next Due Hepatitis B (Gmfedmu-S-Oeetm , Recombivax HB-Adult) 19yo and older 12/13/2017,07/19/2017,06/14/2017 [...] CHOLECYSTECTOMY PROCEDURE: HISTORICAL CHOLECYSTECTOMY BARIATRIC SURGERY PROCEDURE: GA LAPS GSTRC RSTRICTIV PX LONGITUDINAL GASTRECTOMY; COMMENT: [...] 09/14/2024 8:10 AM EST Plan of Treatment Upcoming Encounters Date Type Department Care Team (Late st Contact Info) Description 01/19/2025 8:00 AM EDT Office Visit Internal Medicine - [address] [phone] David Wilcox MD [address] [place] [phone] Health Maintenance Due Date Last Done Comments [...] Tdap) 04/03/2024 04/03/2014, 08/29/2012, 02/02/2011 Influenza Vaccine (Season Ended) 2025 06/24/2018 Cholesterol Screening (Lipid Panel) 11/12/2027 11/11/2022 [...] age to complete this topic Meningococcal B Vaccine Aged Out No l onger eligible based on patient's age to complete this topic RSV Immunization Patients Under 20 months Aged Out No longer eligible b ased on patient's age to complete this topic Varicella Vaccines Aged Out No longer eligible based on patient's age to complete this topic Procedures Procedure Name Priority Date/Time Associated Diagnosis Comments MR BRAIN WO CONTRAST Routine 12/06/2024 5:16 PM EDT Encephalopathy, unspecified LIPID PANEL Routine 11/11/2022 HEPATITIS C SCREENING Routine 04/05/2017 HM PAP SMEAR Routine 10/21/2010 from Last 3 Months or Most Recently Relevant to Health Maintenance Results * MR Brain wo Contrast (12/06/2024 5:16 PM EDT) Anatomical Region Laterality Modality Head and Neck Magnetic Resonan ce 12/07/2024 8:57 AM EDT Impressions 12/07/2024 8:59 AM EDT Normal MRI appearance of the brain. -------- FINAL REPORT -------- Dictated By: Kody Uribe Dictated Date: 12/07/2024 08:57 ET Assigned Physician: Kody Uribe Reviewed and Electronically Signed By: Kody Uribe Signed Date: 12/07/2024 08:59 ET Workstation ID: [id number] Transcribed By: Self Edit Transcribed Date: 12/07/2024 08:57 ET Narrative 12/07/2024 8:59 AM EDT PROCEDURE: Noncontrast MRI of the brain. HISTORY: encephalopathy. ??Memory problems. COMPARISON: None. TECHNIQUE: Multiplanar multisequence MRI of the brain without intravenous contrast administration. FINDINGS: BRAIN: No diffusion abnormality. ??No mass or extra-axial fluid collection. ??No hydrocephalus. ??The major intracranial flow voids are preserved. Age commensurate ventricles and sulci. ORBITS: Normal. SINUSES/MASTOIDS: Mild mucosal thickening in both maxillary antra. ??Small amount of layering debris in the posterior left maxillary antrum. ??Moderate mucous retention cyst along the floor the right maxillary antrum. ??Mild mucosal thickening in the right frontoethmoidal recess and in the inferior sphenoid sinus. ??Small amount of fluid in the mastoids, right greater than left. CALVARIUM: Normal. OTHER: The visualized skull base soft tissues are normal. Procedure Note Kody Uribe MD - 12/07/2024 PROCEDURE: Noncontrast MRI of the brain. HISTORY: encephalopathy. Memory problems. COMPARISON: None. TECHNIQUE: Multiplanar multisequence MRI of the brain without intravenouscontrast administration. FINDINGS: BRAIN: No diffusion abnormality. No mass or extra-axial fluid collection.No hydrocephalus. The major intracranial flow voids are preserved. Agecommensurate ventricles and sulci. ORBITS: Normal. SINUSES/MASTOIDS: Mild mucosal thickening in both maxillary antra. Smallamount of layering debris in the posterior left maxillary antrum.Moderate mucous retention cyst along the floor the right maxillary antrum.Mild mucosal thickening in the right frontoethmoidal recess and in theinferior sphenoid sinus. Small amount of fluid in the mastoids, rightgreater than left. CALVARIUM: Normal. OTHER: The visualized skull base soft tissues are normal. IMPRESSION: Normal MRI appearance of the brain. -------- FINAL REPORT -------- Dictated By: Kody Uribe Dictated Date: 12/07/2024 08:57 ET Assigned Physician: Kody Uribe Reviewed and Electronically Signed By: Kody Uribe Signed Date: 12/07/2024 08:59 ET Workstation ID: [id number] Transcribed By: Self Edit Transcribed Date: 12/07/2024 08:57 ET Result [facility] Mynor Mccabe MD IMG MRI PROCEDURES Final Re sult * Lipid panel (11/11/2022) [facility] LDL/HDL Ratio 2 0 - 4 Triglycerides 99 0 - 150 mg/dL Cholesterol 141 0 - 200 mg/dL HDL 63 >=40 mg/dL LDL Cholesterol 59 0 - 100 mg/dL Blood Venous blood specimen / Unknown Result [facility] Provider LAB BLOOD ORDERABLES Gay l Result * Hepatitis C Screening (04/05/2017) Pathologist [facility] Hepatitis C Screening abstracted Result [facility] Historical Provider HEALTH MAINTENANCE Final Result * Pap Smear (10/21/2010) Pathologist [facility] Pap smear no interpretation , abstracted Historical Provider HEALTH MAINTENANCE Final Result from Last 3 Months or Most Recently Relevant to Health Maintenance Insurance Care Teams Spool Salvager Relationship Specialty Start Date End Date David Wilcox MD [address] [place] [phone] PCP - General Internal Medicine 09/12/24
--- NOTE | 2024-12-18 12:53 | A.OFFVIS_ITS ---
VS Expanded 12/18/24 13:07 Height 5 ft 3 in Weight 221 lb 1 oz BMI 39.2 Body Fat % 42.4 Body Fat Mass 93.6 Fat Free Mass 127.4 Visceral Fat Rating 11 Body Water Mass 91 Basal Metabolic Rate/Score 1,779 Intake Visit Reasons: TV Re-Establishing Revision BMI 39.2 Allergies adhesive Allergy (Severe, Verified 12/04/24 08:32) Blister HPI HPI TV Re-Establishing Revision BMI 39.2: Details: Start time: 12.40pm, End time: 1.25pm I spent 40 minutes speaking with the patient on the phone plus an additional 5 minutes reviewing and updating records for a total of 45 minutes HPI Comments Details: Previous weight loss efforts: LSG (Pre-sleeve: 287lbs, lowest: 205lbs), The patient was also in our program from 02/07/24 to 06/19/24 and lost 8.8lbs, or 4% TBWL. However, she has now regained this weight back. Complains of GERD and has been diagnosed with a diaphragmatic hernia which bothers her on a daily basis. Wakes up: 6am, Sleeps: 12am Breakfast: skips Lunch: may skip 1pm (2 boiled eggs and one apple or cheese sticks, or some bread) Dinner: 6.30pm (rice, meats, chicken, fish, vegetables) Snacks: 8am (crackers), 8pm (chips or fruits, goldfish crackers, yogurt) Exercise: none Fluids: Coffee 30oz/d (creamers), tea: none, soda: none, juice: rarely, ETOH: a few times per year PFSH Medical History Hypothyroidism Knee pain Diaphragmatic hernia GERD (gastroesophageal reflux disease) BMI 37.0-37.9, adult Obesity Surgical History Hx of laparoscopic partial gastrectomy Hx of tubal ligation Hx of section Hx of cholecystectomy Hx of adenoidectomy Hx of tonsillectomy Hx of myringotomy Family History (Updated 12/04/24 @ 08:34 by MICHELE Hernadez) Paternal Aunt Uterus cancer Paternal Grandfather Diabetes Social History Alcohol intake: current Alcohol intake frequency: holidays/special occasions only Alcohol type: hard liquor and other Patient Tobacco Use Status: Never used Tobacco Physical Exam Vital Signs: BMI result Body Mass Index 39.2 Telehealth Telehealth Telehealth Platform: Telephone Location of provider rendering services: practice address Location of patient: address on file Patient Identification confirmed using: Name, : Yes Telehealth method: voice only Patient verbally consented to treatment: Yes Patient verbally consented to billing insurance company: Yes Patient informed of any privacy concerns related to visit: Yes Minutes spent on Phone/Video with Pt.: 45 Assessment & Plan Assessment & Plan (1) Obesity: Code(s): E66.9 - Obesity, unspecified Category: Medical Qualifiers: Body mass index: BMI 37.0-37.9 Obesity classification: adult class 2 (BMI 35 - 39.9) Obesity type: due to excess calories Serious obesity comorbidity presence: without serious comorbidity Qualified Code(s): E66.09 - Other obesity due to excess calories; Z68.37 - Body mass index [BMI] 37.0-37.9, adult Plan: 1. Plan for lap sleeve gastrectomy revision and diaphragmatic hernia repair, including upper GI endoscopy. All tests has been completed and reviewed and the patient is cleared for the surgery. The surgery does not replace the need to change your lifestlyle which is the cause of the obesity problem. The surgery provides the motivation to try again to change your lifestyle, it reduces the appetite and make the transition to a better lifestyle easier and doubles the amount of weight you would lose compared to doing the lifestyle change without the surgery. You will need to be on a liquid diet with protein shakes for 2 weeks before surgery to maximize weight loss and boost your nutritional status to recover better from surgery and also for the first two weeks after surgery to let the stomach heal before we introduce other foods. After the first 2 weeks we will introduce protein bars and soft foods like scrambled eggs, cottage cheese and yogurt and after the 6th week will introduce meat, fish and cooked vegetables in small amounts. Over time you should be able to eat everything in small amounts. Side effects like nausea, vomiting, heartburn or abdominal pain are not common in the practice unless you are not following in the practice. This operation requires lifetime commitment to following in our practice and communication with me. You will much less weight and experience side effects if you don?t communicate or not following in the practice. Complications are rare and in our practice is about 1/10 of the national average. However, you can develop bleeding that may require transfusion (hasn?t happened for year in the practice), you may from complications (we did not have any deaths in the practice) and infections. Infections are usually a result of breakdown in communication or not understanding or following directions correctly. They are difficult to treat, they can happen during the first 6 weeks, they may require to be in the hospital for weeks or even months, not being able to eat by mouth and you may have drains and surgeries to try and correct the issue. Other risks and complications include possible conversion to an open procedure, leaks, small bowel obstruction, blood clots, cardiac, or pulmonary complications, as return agent complications such as ulcers, insufficient weight loss and vitamin deficiencies. So far she has proven to be an excellent communicator and very compliant with all our directions accomplishing a great weight loss. I believe that she is an excellent candidate and she is ready. 2. The patient participated in a structured preoperative lifestyle intervention program supervised by a physician for 4 months. The lifestyle intervention was provided by my proprietary [employer] software under my supervision and included a structured nutritional plan with a specific daily protein intake goal (2 Atkins Plus protein shakes (4oz of Atkins mixed with 4oz almond milk), 1.5 Atkins protein bars and one meal with 6 forkfuls of protein and 6 forkfuls of salad), an exercise plan with a 2000 calorie burn weekly goal (walking outside burning 285 calories daily), weekly behavior modification guidance and completion of eight 1-hour online nutritional classes and passing successfully the corresponding quizzes. Adherence to preoperative care plan was demonstrated by completing an extensive preoperative work-up. Program participation was demonstrated by completing 4 visits with our medical team and by sharing weekly weight measurements weekly for 4 months via an approved body composition scale. Compliance to the lifestyle intervention was demonstrated by achieving a 8lbs weight-loss or 4% total body weight loss (TBWL). No medications were used to achieve this weight loss. ?3. If you choose shakes, each shake would be drunk slowly, like coffee in a period of 2 hours. ?4. If you choose bars, cut each bar in 4 pieces and eat each piece in 30min ?to make each bar last 2 hours. ?5. I emphasized the importance of measuring accurately the food portion and measure it when serving the food in plate ?6. The meal portions include a specific number of forks of meat and salad. You always eat the meat portion but you can replace up to half of salad/vegetables portion with rice, potatoes or pasta, or a fruit ?if you like. The less you do it the better weight loss will be. ?7. One full-size fork is what it can be scooped on the fork without falling aside and not what can be bit with the fork. Use regular forks like those you find in a typical restaurant. ?8.? Please send me weight measurements as soon as possible and then once a week. Always include your diet and exercise plan. 9. The best choice would be to purchase a stationary bike, elliptical or treadmill at home that can track calories. Let me know if you do so I can give you an exercise plan. ?10.?It is important of avoiding and for at least 18 months postoperatively and has been discussed at the infosession. ?11. Goal is to lose at least 1.5-2lbs per week ?12. The patient meets her insurance's criteria for GLP-1 use. The patient has been in the program for 4 months and lost 8lbs or 4% TBWL following our lifestyle program. Start the Zepbound when you get your body composition scale once a week. We discussed the potential side effects of Zepbound such as nausea, vomiting, abdominal pain, diarrhea and constipation and you will need to contact me if any of these symptoms occur or for any other new symptom you may experience 13. Please follow the diet plan exactly without any change. If you don't like something about the plan or you feel hungry you need to communicate with me so I can help you revise the plan. You should not change the plan yourself. Medications: New tirzepatide (weight loss) (Zepbound) for 4 weeks 2.5 mg (0.5 mL) subcut QWEEK 2 mL 0RF E03.9 - Hypothyroidism, unspecified, E66.09 - Other obesity due to excess calories, Z68.37 - Body mass index [BMI] 37.0-37.9, adult
[2024-12-18 13:07] VITALS: BMI 39.2
== END 2024-12-18 14:56 | disposition home or self-care (01) ==
LOC: HO.HBS 08:11
PROVIDERS: PCP Internal Medicine; Visit Provider Surgery
DX: E66.09 Other obesity due to excess calories (principal); E66.812 Obesity, class 2; Z68.39 Body mass index [BMI] 39.0-39.9, adult
CPT/HCPCS: 98014

== ENCOUNTER → 2024-12-18 08:11 | Outpatient (BNVA) | payer OTHER, SELFPAY | PROVIDERS: PCP Internal Medicine; Visit Provider Surgery ==

== ENCOUNTER 2025-01-29 08:09 | Outpatient (AMB) | payer OTHER, SELFPAY ==
--- NOTE | 2025-01-29 08:46 | MHC.OFFVISWM ---
VS Expanded 01/29/25 09:00 Height 5 ft 3 in Weight 213 lb 2 oz BMI 37.7 Body Fat % 48.7 Body Fat Mass 103.8 Fat Free Mass 109.4 Visceral Fat Rating 19 Body Water % 35.2 Body Water Mass 75 Basal Metabolic Rate/Score 1,441 Intake Visit Reasons: TV Pre Op Revision LSG to LSG 02/15/25 Allergies adhesive Allergy (Severe, Verified 01/29/25 08:46) Blister Medication List - Last Reconciled 01/29/25 by Alfredo Taylor MD ferrous sulfate (FeroSul) 325 mg PO DAILY levothyroxine mcg PO omeprazole 20 mg PO BID ondansetron 4 mg PO Q12H pantoprazole 40 mg PO DAILY polyethylene glycol 3350 (Miralax) 17 grams PO DAILY sucralfate 10 mL PO BID HPI HPI TV Pre Op Revision LSG to LSG 02/15/25: Details: Start time: 8.06am, End time: 9.06am ?I spent 25 minutes speaking with the patient on the phone plus an additional 5 minutes reviewing and updating records for a total of 30 minutes HPI Comments Details: Overall weight loss: 5.6lbs or 2.56% TBWL Is doing 2 Atkins protein bars and one meal (7 forks or meat and 7 forks of salad or vegetables) Exercise: is doing the stationary bike for 300 calories per day, daily PFSH Medical History Hypothyroidism Knee pain Diaphragmatic hernia GERD (gastroesophageal reflux disease) BMI 37.0-37.9, adult Obesity Surgical History Hx of laparoscopic partial gastrectomy Hx of tubal ligation Hx of section Hx of cholecystectomy Hx of adenoidectomy Hx of tonsillectomy Hx of myringotomy Family History (Updated 12/04/24 @ 08:34 by MICHELE Hernadez) Paternal Aunt Uterus cancer Paternal Grandfather Diabetes Social History Alcohol intake: current Alcohol intake frequency: holidays/special occasions only Alcohol type: hard liquor and other Patient Tobacco Use Status: Never used Tobacco Telehealth Telehealth Telehealth Platform: Telephone Location of provider rendering services: practice address Location of patient: address on file Patient Identification confirmed using: Name, : Yes Telehealth method: voice only Patient verbally consented to treatment: Yes Patient verbally consented to billing insurance company: Yes Patient informed of any privacy concerns related to visit: Yes Minutes spent on Phone/Video with Pt.: 30 Assessment & Plan Assessment & Plan (1) Obesity: Code(s): E66.9 - Obesity, unspecified Category: Medical Qualifiers: Obesity type: due to excess calories Obesity classification: adult class 2 (BMI 35 - 39.9) Serious obesity comorbidity presence: without serious comorbidity Body mass index: BMI 37.0-37.9 Qualified Code(s): E66.09 - Other obesity due to excess calories; Z68.37 - Body mass index [BMI] 37.0-37.9, adult Plan: 1. Plan for lap sleeve gastrectomy including upper GI endoscopy. All tests has been completed and reviewed and the patient is cleared for the surgery. ?If diaphragmatic or ventral hernias are present at time of surgery, these will be repaired laparoscopically as well. Risks and complications were discussed in detail including possible conversion to an open procedure, anastomotic leak, bleeding requiring transfusion, small bowel obstruction, , DVT and pulmonary embolism, cardiac, or pulmonary complications, as remote computer terminal operator complications such as anastomotic ulcer, insufficient weight loss and vitamin deficiencies. I emphasized the importance of close follow-up, adherence to instructions and good communication. So far she has proven to be an excellent communicator and very compliant with all our directions accomplishing a great weight loss. I believe that she is an excellent candidate and she is ready. 2. Preop prescriptions were provided and explained the purpose of each one. Need to be purchased preop. Start Pantoprazole now as you get it from the pharmacy, 1 pill per day. Sucralfate and Zofran are for after surgery as needed. 3. Bowel prep: please do 7 packets ?of Miralax mixing each one with a an 8oz glass of water, crystal light, gatorade zero, or propel ?on 02/13/25 and the same amount on 02/14/25. The Miralax you begin with one packet at a time in 8oz water or crystal light, gatorade zero, or propel ?as early in the day as you can and you do them back to back until you finish them. Continue the protein shakes during ?the bowel prep. 4. Needs to purchase 1oz medicine cups . 5. Needs to purchase Children's liquid Tylenol for postop pain control. 6. Avoid aspirin, motrin, Advil, Aleve, Meloxicam, Excedrin, Ibuprofen, Naproxyn. Tylenol is OK. 7. She needs to purchase the Celebrate multivitamins from the hospital's gift shop, chewable or pills whatever you prefer. 8. Will do basic preop blood work-up any day between Wednesday02/05/25 and Wednesday02/09/25 fasting for 12 hours and is scheduled to see the Anesthesiologist prior to the day of surgery. 9. Importance of adherence to postop folllow-up and recommendations was underscored and she understands that. 10. Stop food and bars as of tomorrow 01/30/25 and continue with 4 16gr protein ATKINS protein shakes at 7am-9am, 10am-12pm, 1pm-3pm, 4pm-6pm and one more 15gr protein ATKINS protein shake mixing 6oz of Atkins shake with 2oz of almond milk at 7pm-9pm 11. No soups, broths or V8 12. The patient's?medical?history has been reviewed and they are considered low risk for post op DVT and therefore DVT prophylaxis is not considered necessary. Travel after surgery was reviewed. The patient has not disclosed any travel plans during the first 30 days after surgery and they have been advised that within the first 30 days after surgery any bus, plane, train or car travel over 2 hours in duration is contraindicated due to the possibility of developing blood clots from immobility. Any travel, needs to include periods of ambulation of 10 minutes in duration every 2 hours.? Patient was instructed to discuss any plans for travel during this period with their bariatric surgeon.? 13. Please take at the day of surgery the following medications: NONE 14. Stop any control pills and don't use them for one month after surgery 15. Absolutely no smoking or vaping, or marijuana until the surgery and for at least the first 4 weeks. Only nicotine patches are allowed. 16. Send me weight measurements DAILY until day of surgery before you go to the hospital. 17. Avoid any steroids by mouth for any reason. Let me know if someone prescribes them to you 18. These instructions supersede anything else you read in the handbook, anything you watched in videos or classes or you were told by any other provider. If there is any conflict, you follow the above instructions and nothing else. Orders: Orders Prothrombin Time INR Today E03.9 - Hypothyroidism, unspecified, E66.09 - Other obesity due to excess calories, Z68.37 - Body mass index [BMI] 37.0-37.9, adult Type and Screen Today E03.9 - Hypothyroidism, unspecified, E66.09 - Other obesity due to excess calories, Z68.37 - Body mass index [BMI] 37.0-37.9, adult Lipid Panel Today E03.9 - Hypothyroidism, unspecified, E66.09 - Other obesity due to excess calories, Z68.37 - Body mass index [BMI] 37.0-37.9, adult C Reactive Protein Today E03.9 - Hypothyroidism, unspecified, E66.09 - Other obesity due to excess calories, Z68.37 - Body mass index [BMI] 37.0-37.9, adult Partial Thromboplastin Time Today E03.9 - Hypothyroidism, unspecified, E66.09 - Other obesity due to excess calories, Z68.37 - Body mass index [BMI] 37.0-37.9, adult Insulin Today E03.9 - Hypothyroidism, unspecified, E66.09 - Other obesity due to excess calories, Z68.37 - Body mass index [BMI] 37.0-37.9, adult Comprehensive Met. Panel Today E03.9 - Hypothyroidism, unspecified, E66.09 - Other obesity due to excess calories, Z68.37 - Body mass index [BMI] 37.0-37.9, adult TSH reflex Free T4 Today E03.9 - Hypothyroidism, unspecified, E66.09 - Other obesity due to excess calories, Z68.37 - Body mass index [BMI] 37.0-37.9, adult Hemoglobin A1c Today E03.9 - Hypothyroidism, unspecified, E66.09 - Other obesity due to excess calories, Z68.37 - Body mass index [BMI] 37.0-37.9, adult Complete Blood Count Auto Diff Today E03.9 - Hypothyroidism, unspecified, E66.09 - Other obesity due to excess calories, Z68.37 - Body mass index [BMI] 37.0-37.9, adult Medications: New pantoprazole 40 mg PO DAILY 90 tabs 0RF K21.9 - Gastro-esophageal reflux disease without esophagitis sucralfate 10 mL PO BID 600 mL 2RF K21.9 - Gastro-esophageal reflux disease without esophagitis ondansetron Only take one every 12 hours as needed if you have nausea 4 mg PO Q12H 20 tabs 0RF nausea and vomiting R11.0 - Nausea polyethylene glycol 3350 (Miralax) Mix each measuring cup with 8oz of water, Crystal light, or Gatorade zero, or Propel and do 7 measuring cups on 02/13/25 and another 7 measuring cups on 02/14/25 17 grams PO DAILY 14 ea 0RF Z01.818 - Encounter for other preprocedural examination
[2025-01-29 09:00] VITALS: BMI 37.7
== END 2025-01-29 09:06 | disposition home or self-care (01) ==
LOC: HO.HBS 08:09
PROVIDERS: PCP Internal Medicine; Visit Provider Surgery
DX: E66.09 Other obesity due to excess calories (principal); Z68.37 Body mass index [BMI] 37.0-37.9, adult
CPT/HCPCS: 99499

== ENCOUNTER → 2025-01-29 08:09 | Outpatient (BNVA) | payer OTHER, SELFPAY | PROVIDERS: PCP Internal Medicine; Visit Provider Surgery ==

== ENCOUNTER 2025-02-06 07:28 | Outpatient (AMB) | payer OTHER, SELFPAY ==
--- NOTE | 2025-02-06 07:56 | ECG_ITS ---
Test Reason : preproc exam Blood Pressure : */* mmHG Vent. Rate : 69 BPM Atrial Rate : 69 BPM P-R Int : 140 ms QRS Dur : 86 ms QT Int : 406 ms P-R-T Axes : 53 52 17 degrees QTcB Int : 435 ms Normal sinus rhythm with sinus arrhythmia Normal ECG When compared with ECG of 17-Mar-2024 08:29, No significant change was found Referred By: Markell Felipe Electronically Signed By: Parag De La Torre
[2025-02-06 09:29] VITALS: BMI 35.4
--- NOTE | 2025-02-06 09:29 | A.OFFVIS_ITS ---
VS Expanded 02/06/25 09:29 Height 5 ft 4 in Weight 206 lb 4 oz BMI 35.4 Body Fat % 41.6 Body Fat Mass 85.8 Fat Free Mass 120.6 Visceral Fat Rating 10.0 Body Water % 41.8 Body Water Mass 86.2 Muscle Mass/Score 114.4 Basal Metabolic Rate/Score 1,680 Intake Visit Reasons: Weight Check (LSG 02/15/25) Allergies adhesive Allergy (Severe, Verified 02/02/25 13:20) Blister, also steri-strips [facility] Medical History (Updated 02/01/25 @ 09:55 by REBECCA Pedro) Hypothyroidism Knee pain Diaphragmatic hernia GERD (gastroesophageal reflux disease) BMI 37.0-37.9, adult Obesity Surgical History (Updated 02/02/25 @ 13:26 by Rachel Clements, KAYE) H/O excision of mass History of esophagogastroduodenoscopy (EGD) (02/2024) Hx of laparoscopic partial gastrectomy Hx of tubal ligation Hx of section Hx of cholecystectomy Hx of adenoidectomy Hx of tonsillectomy Hx of myringotomy Family History (Updated 12/04/24 @ 08:34 by MICHELE Hernadez) Paternal Aunt Uterus cancer Paternal Grandfather Diabetes Social History (Updated 02/02/25 @ 13:23 by Rachel Clements, KAYE) Household Members: Family Housing: House Are you a primary healthcare specialist to a significant other at home: Yes (children) Do you presently have visiting nurse or other home services: No 75 years or older and lives alone: No Alcohol intake: current Alcohol intake frequency: holidays/special occasions only Alcohol type: hard liquor and other Patient Tobacco Use Status: Never used Tobacco e-Cigarette/Vaping Use: Never Used Use of substances other than those prescribed or required for medical reasons: No Advance Directives: No Advance Directives Information Provided: Yes Advance Directives on File: No Healthcare Proxy: No Physical Exam Vital Signs: BMI result Body Mass Index 35.4
--- NOTE | 2025-02-06 12:58 | MHC.NURWM ---
Intake VS Expanded 02/06/25 09:29 02/06/25 12:59 Height 5 ft 4 in 5 ft 4 in Weight 206 lb 4 oz 206 lb 4 oz BMI 35.4 35.4 Body Fat % 41.6 41.6 Body Fat Mass 85.8 85.8 Fat Free Mass 120.6 120.6 Visceral Fat Rating 10.0 10.0 Body Water % 41.8 41.8 Body Water Mass 86.2 86.2 Muscle Mass/Score 114.4 114.4 Basal Metabolic Rate/Score 1,680 1,680 Intake Visit Reasons: Weight Check (LSG 02/15/25) Allergies adhesive Allergy (Severe, Verified 02/02/25 13:20) Blister, also steri-strips Coding
[2025-02-06 12:59] VITALS: BMI 35.4
== END 2025-02-06 07:45 | disposition home or self-care (01) ==
LOC: HO.HBS 07:29
PROVIDERS: PCP Internal Medicine; Visit Provider Physician Assistant Surgical
DX: Z13.6 Encounter for screening for cardiovascular disorders (principal)
CPT/HCPCS: 93010

== ENCOUNTER → 2025-02-06 07:28 | Outpatient (BNVA) | payer OTHER, SELFPAY | PROVIDERS: PCP Internal Medicine; Visit Provider Physician Assistant Surgical | DX: Z71.3 Dietary counseling and surveillance (principal); Z01.89 Encounter for other specified special examinations | CPT/HCPCS: 93005 ==

== ENCOUNTER 2025-02-15 06:04 | Day surgery (SDC) | payer OTHER, SELFPAY ==
[2025-02-02 13:21] VITALS: BMI 37.2
[2025-02-06 08:23] LABS: MANUAL DIFF FLAG NO
[2025-02-06 08:42] LABS: Basophils Percent Auto 0.6 % (0-2); Eosinophils Absolute Auto 0.1 X10*3/uL (0.0-0.4); Hematocrit 42.4 % (37.0-47.0); Hemoglobin 14.5 g/dl (12.0-16.0); Imm Gran Abs Auto 0.01 X10*3/uL (0.00-0.03); Imm Gran Pct Auto 0.2 % (0.0-0.4); Lymphocytes Absolute Auto 1.4 X10*3/uL (1.2-4.9); Mean Corpuscular HGB Conc 34.2 g/dl (31.0-35.0); Mean Corpuscular Hemoglobin 26.7 pg (27.0-33.0); Mean Corpuscular Volume 77.9 fL (80.0-98.0); Mean Platelet Volume 11.7 fL (9.4-12.3); Monocytes Absolute Auto 0.5 X10*3/uL (0.1-1.2); Monocytes Percent Auto 10.4 % (2-11); Neutrophils Absolute Auto 2.6 x10*3/uL (2.0-8.3); Neutrophils Percent Auto 55.8 % (45-73); Platelet Count 194 X10*3/uL (160-400); Red Blood Count 5.44 X10*6/uL (4.20-5.50); Red Cell Distribution Width 12.8 % (11.0-16.0); White Blood Count 4.6 X10*3/uL (4.8-10.8)
[2025-02-06 08:47] LABS: Prothrombin Time 11.6 SEC (10.9-12.4)
[2025-02-06 08:50] LABS: Partial Thromboplastin Time 29.4 SEC (26.0-36.8)
[2025-02-06 08:59] LABS: Estimated Average Glucose 91 mg/dL; Hemoglobin A1c % 4.8 % (<6.0)
[2025-02-06 09:07] LABS: Alanine Aminotransferase 23 U/L (0-31); Albumin Level 4.3 g/dL (3.5-5.0); Alkaline Phosphatase 76 U/L (39-117); Anion Gap 12 (12-20); Aspartate Amino Transferase 25 U/L (5-31); Bilirubin Total 0.7 mg/dL (0.0-1.0); Blood Urea Nitrogen 11 mg/dL (9-16); C Reactive Protein 1.25 mg/dL (< or = 0.50); Calcium 9.5 mg/dL (8.4-10.2); Carbon Dioxide 26 mmol/L (22-29); Chloride 106 mmol/L (96-108); Cholesterol 124 mg/dL (<200); Creatinine Clr Calc Pharmacy 112.9; Estimated Glomerular Filt Rate > 60; Glucose Random 89 mg/dL (60-115); HDL Cholesterol 44 mg/dL (>40); LDL Cholesterol Calculated 65 mg/dL (<100); Potassium 3.9 mmol/L (3.3-5.1); Sodium 140 mmol/L (135-145); Total Protein 7.2 g/dL (6.5-8.0); Triglycerides 79 mg/dL (<150)
[2025-02-06 09:30] LABS: TSH reflex Free T4 2.92 uIU/mL (0.32-4.0)
[2025-02-06 10:36] LABS: Insulin 7 uU/mL (2-29)
--- NOTE | 2025-02-13 14:50 | HO.ANESPROP2 ---
Documented by User: Cecille Paredes NP 02/13/25 14:51 HPI - Anesthesia Eval Consult details Narrative: 39yo F for Revision Sleeve Gastrectomy TO Gastrectomy Sleeve- EGD, possible diaphragmatic hernia, possible ventral hernia, possible open PMFSH Active Problems Active Problems: All Active Problems Pre-op evaluation (Acute) Vitamin B12 deficiency (Acute) Vitamin D deficiency (Acute) Vitamin A deficiency (Acute) Iron deficiency (Acute) Anemia (Acute) Hypothyroidism (Acute) Knee pain (Acute) Diaphragmatic hernia (Acute) GERD (gastroesophageal reflux disease) (Acute) BMI 37.0-37.9, adult (Acute) Obesity (Acute) Past Medical History Medical History Hypothyroidism Knee pain Diaphragmatic hernia GERD (gastroesophageal reflux disease) BMI 37.0-37.9, adult Obesity Family History Family History Paternal Aunt Uterus cancer Paternal Grandfather Diabetes Family history of problems with anesthesia: No Surgical History Surgical History H/O excision of mass History of esophagogastroduodenoscopy (EGD) (02/2024) Hx of laparoscopic partial gastrectomy Hx of tubal ligation Hx of section Hx of cholecystectomy Hx of adenoidectomy Hx of tonsillectomy Hx of myringotomy History of Problems with Anesthesia: No Social History Social History Household Members: Family Housing: House Are you a primary grounds caretaker to a significant other at home: Yes (children) Do you presently have visiting nurse or other home services: No Alcohol intake: current Alcohol intake frequency: holidays/special occasions only Alcohol type: hard liquor and other Patient Tobacco Use Status: Never used Tobacco e-Cigarette/Vaping Use: Never Used Use of substances other than those prescribed or required for medical reasons: No Have you been hit, kicked, punched, or otherwise hurt by someone within the past year? If so, by whom?: No Are you DNR?: No Advance Directives: No Advance Directives Information Provided: Yes Advance Directives on File: No Patient : No FDLMP: 01/10/2025 : No Poor oral hygiene: No Meds Allergies Allergy/AdvReac Type Severity Reaction Status Date / Time adhesive Allergy Severe Blister, Verified 02/02/25 13:20 also steri-strips Home Medications ?Medication ?Instructions ?Recorded ?Confirmed ?Last Taken ?Type ferrous sulfate 325 mg (65 mg 325 mg PO DAILY 12/16/23 02/02/25 02/14/25 History iron) tablet (FeroSul) omeprazole 20 mg capsule,delayed 20 mg PO BID 02/07/24 02/02/25 02/01/25 History release levothyroxine 25 mcg tablet 25 mcg PO 3XW 12/04/24 02/02/25 02/14/25 History iron,carbonyl 65 mg-vitamin C 125 1 tab PO DAILY 02/02/25 02/02/25 02/14/25 History mg tablet,delayed release (Vitron-C) levothyroxine 50 mcg tablet 50 mcg PO 4XW 02/02/25 02/02/25 02/11/25 History calcium 500 mg-vitamin D3 100 1 tab PO DAILY 02/15/25 02/15/25 02/09/25 History unit-vitamin K 40 mcg chewable tablet Exam Height,Weight and Vital Signs: Height 5 ft 3 in Weight 95.254 kg Pertinent Lab Results Pertinent Lab Results: Laboratory Tests 02/06/25 02/06/25 08:20 08:22 WBC 4.6 L RBC 5.44 Hgb 14.5 D Hct 42.4 MCV 77.9 L MCH 26.7 L MCHC 34.2 RDW 12.8 Plt Count 194 MPV 11.7 Immature Gran % (Auto) 0.2 Neut % (Auto) 55.8 Lymph % (Auto) 30.0 Citrus % (Auto) 10.4 Eos % (Auto) 3.0 Baso % (Auto) 0.6 Lymph # (Auto) 1.4 Citrus # (Auto) 0.5 Eos # (Auto) 0.1 Baso # (Auto) 0.0 Abs Immat Gran (auto) 0.01 Absolute Neuts (auto) 2.6 Absolute Nucleated RBC 0.000 Nucleated RBC % (auto) 0.0 PT 11.6 INR 1.0 APTT 29.4 Sodium 140 Potassium 3.9 Chloride 106 Carbon Dioxide 26 Anion Gap 12 BUN 11 Creatinine 0.72 Estim Creat Clear Calc 112.9 Estimated GFR > 60 Random Glucose 89 Estimat Average Glucose 91 Hemoglobin A1c % 4.8 Insulin Level 7 Calcium 9.5 Total Bilirubin 0.7 AST 25 ALT 23 Alkaline Phosphatase 76 C-Reactive Protein 1.25 H Total Protein 7.2 Albumin 4.3 Triglycerides 79 Cholesterol 124 LDL Cholesterol, Calc 65 HDL Cholesterol 44 TSH 2.92 Blood Type AB Positive Antibody Screen NEGATIVE Narrative Narrative: EKG 01/2025 Vent. Rate : 69 BPM Atrial Rate : 69 BPM P-R Int : 140 ms QRS Dur : 86 ms QT Int : 406 ms P-R-T Axes : 53 52 17 degrees QTcB Int : 435 ms Normal sinus rhythm with sinus arrhythmia Normal ECG When compared with ECG of 17-Mar-2024 08:29, No significant change was found Assessment and Plan Assessment Anesthesia Assessment: Chart Reviewed Final Anesthetic Review Family History of Problems with Anesthesia: No History of Problems with Anesthesia: No Documented by User: Isai Perkins MD 02/15/25 07:14 PMF Past Medical History Medical History Hypothyroidism Knee pain Diaphragmatic hernia GERD (gastroesophageal reflux disease) BMI 37.0-37.9, adult Obesity Functional capacity: independent ambulation Family History Family History Paternal Aunt Uterus cancer Paternal Grandfather Diabetes Surgical History Surgical History H/O excision of mass History of esophagogastroduodenoscopy (EGD) (02/2024) Hx of laparoscopic partial gastrectomy Hx of tubal ligation Hx of section Hx of cholecystectomy Hx of adenoidectomy Hx of tonsillectomy Hx of myringotomy Social History Social History Household Members: Family Housing: House Are you a primary grounds caretaker to a significant other at home: Yes (children) Do you presently have visiting nurse or other home services: No Alcohol intake: current Alcohol intake frequency: holidays/special occasions only Alcohol type: hard liquor and other Patient Tobacco Use Status: Never used Tobacco e-Cigarette/Vaping Use: Never Used Use of substances other than those prescribed or required for medical reasons: No Have you been hit, kicked, punched, or otherwise hurt by someone within the past year? If so, by whom?: No Are you DNR?: No Advance Directives: No Advance Directives Information Provided: Yes Advance Directives on File: No Patient : No FDLMP: 01/10/2025 : No Poor oral hygiene: No Meds Allergies Allergy/AdvReac Type Severity Reaction Status Date / Time adhesive Allergy Severe Blister, Verified 02/02/25 13:20 also steri-strips Home Medications ?Medication ?Instructions ?Recorded ?Confirmed ?Last Taken ?Type ferrous sulfate 325 mg (65 mg 325 mg PO DAILY 12/16/23 02/02/25 02/14/25 History iron) tablet (FeroSul) omeprazole 20 mg capsule,delayed 20 mg PO BID 02/07/24 02/02/25 02/01/25 History release levothyroxine 25 mcg tablet 25 mcg PO 3XW 12/04/24 02/02/25 02/14/25 History iron,carbonyl 65 mg-vitamin C 125 1 tab PO DAILY 02/02/25 02/02/25 02/14/25 History mg tablet,delayed release (Vitron-C) levothyroxine 50 mcg tablet 50 mcg PO 4XW 02/02/25 02/02/25 02/11/25 History calcium 500 mg-vitamin D3 100 1 tab PO DAILY 02/15/25 02/15/25 02/09/25 History unit-vitamin K 40 mcg chewable tablet Exam Exam Date and Time: 02/15/2025 Airway Mallampati Class: I TM Dist: >3cm Loose/Missing/Broken Teeth: No Heart: rrr Lungs: cta Other: oriented. No cognitive issues Assessment and Plan Final Anesthetic Review NPO: Yes ASA Class: II Final Preanesthetic Review: No Changes in Pt Med Stat, Meds/Allgs Chart Reviewed, Consent Obtained/Reviewed and Anes Risks/Benef Reviewed Patient Risk: Low Procedure Risk: Low Anesthetic Plan Anesthetic Plan: GA Disposition: Standard PACU
[2025-02-15] VITALS (14 sets, daily range): BP systolic 108–148; BP diastolic 49–99; PULSE 60–107; RESP 6–20; TEMP 36.1–37; O2SAT 97–100; BMI 36.0; BMI 39.8
[2025-02-15] MEDS: Aprepitant 32 MG/4.4 ML VIAL IVPUSH (06:31)
[2025-02-15] MEDS: Lactated Ringers 1,000 ML 999 ML IV (06:31)
--- NOTE | 2025-02-15 07:18 | PC.NURSE ---
pt has sun burn bright pinkish entire body
--- NOTE | 2025-02-15 07:26 | PHA.MEDREC ---
Pharmacy Consult ? Medication Reconciliation Pharmacy has reviewed the medication reconciliation completed by nursing. Updated days of the week for Levothyroxine and removed Prilosec, as pt is no longer on.
--- NOTE | 2025-02-15 07:35 | MHC.SHP ---
Pre-Procedural Eval Section A - 24 Hr Update-Section A only Date of Service: 02/15/25 The patient is an INPATIENT: Yes The patient has been examined within 24 hours of the surgical procedure. The History & Physical has been completed within 30 days and I have reviewed it.: Yes Section B - Complete if H&P > 30 days Chief Complaint: Obesity Relevant Family History (Specify if Yes): No Relevant Social History: None Present Medications: None Medical History: No relevant PMH History of Previous Operations: Relevant previous surgery/procedure and date(s) (Lap sleeve gastrectomy) Allergies: Allergies Allergy/AdvReac Type Severity Reaction Status Date / Time adhesive Allergy Severe Blister, Verified 02/02/25 13:20 also steri-strips Review of Systems Sugical H&P ROS: Negative: Constitution, Cardiovascular, Respiratory, Neurological, Psychiatric, Hem-Onc, Allergic/Immunologic, Gastrointestinal, Genitourinary, Musculoskeletal, Integumentary, Endocrine and Eyes/Ears/Nose/Throat Exam Surgical H&P Exam: Normal: HEENT, Normal: Heart, Normal: Lungs, Normal: Extremities, Normal: Abdomen, Normal: Skin and Normal: Neurological Plan Diagnosis/Plan: Unchanged I have reviewed the history and physical and performed a pertinent physical examination on my patient. No changes have occurred unless specified. Time Spent With Patient Time: Total time managing care of this patient today ____ minutes.
--- NOTE | 2025-02-15 07:37 | PM.OP ---
Brief Operative Note Date of Service: 02/15/25 Pre-op diagnosis: Severe obesity with comorbidities (see below) Post-op diagnosis: same Procedure: INITIAL PATIENT BMI ON PRESENTATION AT OUR OFFICE: 39.2 kg/m2 LAST BMI BEFORE SURGERY: 36.3 kg/m2 COMORBIDITIES: Hypothyroidism, knee pain, GERD ?The patient presented to the Weight Management Program with significant obesity that was negatively impacting the patient's comorbidities as listed above.? The program is a phased program with a special focus on preoperative medical weight management to promote substantial weight loss and prepare the patients for the second phase of the program: bariatric surgery. The patient participated in an intensive weekly lifestyle ?intervention and exercise program during which the patient ?has lost between the initial office visit and the last preoperative visit 14.2lbs, or 6.5% of initial actual body weight. It was deemed appropriate for the patient to now have bariatric surgery. In light of the current Covid-19 pandemic and the well documented strong association of obesity and increased risk of worse outcomes if infected with Covid-19 (REFERENCES:https://pubmed.ncbi.nlm.nih.gov/21952500/,?https://pubmed.ncbi.nlm.nih.gov/54590918/), any delay in undergoing bariatric surgery may lead to the patient's worsening health condition and increased?risk of more severe Covid-19 disease if infected. In addition a recent?study from [facility] published in [facility] on 08/18/2021 ([email or web address]) found that, among patients with obesity, substantial weight loss achieved with surgery was associated with improved outcomes of COVID-19 infection. The findings suggest that obesity can be a modifiable risk factor for the severity of COVID-19 infection. In addition, the patient met the BMI-criteria for bariatric surgery based on the BMI on initial presentation. The patient should not be penalized for achieving such weight loss because ?it is not sustainable long-term without surgical intervention and it was achieved in preparation for bariatric surgery ?under my direction and based on my published research ([email or web address] and?[email or web address].soard.org/article/[email or web address])90564-[email or web address]/pdf) ?that a 10% preoperative weight loss improves long-term weight loss after surgery and reduces perioperative complications.? Insurance carriers such as [facility] have endorsed my recommendations ?and have included in their policies criteria to include a 10% preoperative weight loss requirement. PROCEDURE: Esophago-gastroscopy, extensive laparoscopic lysis of adhesions INDICATIONS: This is a 39 year-old female who was electively scheduled for laparoscopic, possibly open sleeve gastrectomy revision. The patient has a previous sleeve gastrectomy on 12/15/2011 at [facility] with Dr. Marshall. Preoperative work-up including an UGI and EGD is suggestive of a very large proximal pouch of retained gastric fundus as well as incomplete distal antral resection. The objective of this operation is to redo the sleeve. The risks and complications of the procedure were discussed with the patient in advance, particularly the possibility of ; pulmonary embolism; staple line leak; bleeding; GERD; cardiac, pulmonary, or renal complications; as well as long-term problems such as insufficient weight loss, vitamin deficiency, strictures, or ulcers. The patient understood all the risks, and was in agreement to proceed with surgery. DESCRIPTION OF PROCEDURE: After informed consent was obtained from the patient, the patient was given preoperative antibiotics, and was transferred to the operating room. After successful induction of general anesthesia, pneumatic compression devices were placed on both lower extremities. An upper endoscopy was performed next. The oropharynx and esophagus appeared to be within normal limits. There was a diaphragmatic hernia present of small size consistent with the findings of the preoperative upper GI. The stomach was entered. Then after all fluid and air were suctioned and the stomach was fully decompressed, the scope was withdrawn and secured in the mid esophagus. The patient was then prepped and draped in the usual sterile manner, and abdominal access was established at the right upper quadrant with the Dakota technique. A 12 mm blunt port was inserted, and the abdomen was insufflated with CO2 to a pressure of 15 mmHg. Under direct visualization, additional ports were placed, specifically two 5 mm Versi-step ports to the left upper quadrant, and a 5 mm Versi-Step port to the right upper quadrant. 1% lidocaine plain was used to infiltrate all port sites as well as all fascia defects. Following that, the patient was placed in a steep reverse Trendelenburg position. An additional 5 mm port was placed to the right flank for the Mediflex retractor that was used to retract the left lobe of the liver. There were unusually extensive adhesions in the abdomen from previous sleeve gastrectomy involving the entire left lobe of the liver and the anterior gastric wall. The stomach was rotated clockwise and it was densely adherent to the undersurface of the left lobe of the liver starting all the way from the incisura angularis. These adhesions were very dense and I was able to free entirely the distal 2/3 of the stomach. There were also adhesions between the posterior gastric wall and the pancreas. Those were freed as well with the ultrasonic device. Dissection was very difficult not only because of the thick adhesions but also due to the large liver completing enveloping the stomach and the area of the adhesions making exposure very difficult. Proximally, there was significant redundancy of the gastric fundus as the previous surgeon did not resect properly that area of the stomach. There was a corkscrew effect of the stomach as the distal stomach was rotated clockwise and the proximal counter-clockwise due to the large posterior fundal redundancy. In addition the liver and the tissues laterally to the stomach were also densely adherent to the spleen. I could visualize the plain of dissection but I felt that there would be a significant risk of uncontrolled bleeding either from the spleen, splenic artery or posterio short gastric vessels that wouldhave been very difficult to control due to the dense adhesions and poor exposure. Therefore I decided not to proceed further with the intented procedure. ?An upper endoscopy was performed. There was no narrowing at the GE junction. The scope was easily advanced all the way to the pylorus which was clearly visualized. There was no narrowing anywhere. There was no evidence of any injury to the gastric wall due to the dissection. At that point the gastroscope was withdrawn from the patient?s mouth while we were decompressing the bowel and the stomach from any remaining air. I looked into the lesser sac to see how the sleeve was situating and it was situating better than before at least the distal 2/3 of the sleeve. There was no bleeding from the staple line, spleen, or short gastric vessels. The Mediflex retractor was removed, and the undersurface of the liver was inspected and there was no bleeding. The patient was placed in supine position. I closed the fascial defect of the 12 mm port site with a figure of eight #1 Polysorb suture. Then 30cc of Ropivacaine plain with 10 mg of Dexamethasone were used to infiltrate the fascial closure as well as all skin incisions. 5.5 ml of Zynrelef was used at the Dakota port site. At this point, the abdomen was deflated, all ports were removed under direct vision, and no bleeding was noted from any of the port sites. The skin incisions were irrigated with saline and were closed with 4-0 absorbable monofilament sutures. Steri-Strips and OpSites were used to cover all incisions. The patient was extubated and was transferred in stable condition to the recovery room for further care. I was present and performed all ely parts of the procedure. Mr. Felipe was the first helper. There were no residents to assist with this case. Nic Taylor MD, PhD, FACS Surgeon: Alfredo Taylor MD Anesthesia: GETA, local and other (TAP block) Was an Bead Forming Machine Set Up Operator used for this Procedure?: No Bead Forming Machine Set Up Operator: Markell Felipe Estimated blood loss (mL): 10 IV fluids (mL): 1,700 Urine output (mL): 0 (No Goins to record output) Pathology: none sent Condition: stable Disposition: PACU
--- NOTE | 2025-02-15 07:43 | PM.PNGS ---
Subjective Subjective Date of Service: 02/16/25 Interval history: Feels well. Mild incisional pain. She is tolerating phase 1 bariatric diet Physical Exam Vital Signs: Vital Signs: Last Vital Signs Temp 98.6 F 02/15/25 06:15 Pulse 75 02/15/25 06:15 Resp 20 02/15/25 06:15 BP 148/90 H 02/15/25 06:15 Pulse Ox 98 02/15/25 06:15 O2 Del Method Room Air 02/15/25 06:15 BMI result Body Mass Index 36.0 GI: Inspection: Yes normal to inspection, Yes incision (clean, dry and intact) and Yes obesity Palpation (GI): Soft to palpation Extrem: Right lower extremity: normal to inspection (no calf tenderness) Left lower extremity: normal to inspection (no calf tenderness) Objective Data Active Medications Fentanyl (Fentanyl Citrate/Pf 100 Mcg/2 Ml Vial) 50 mcg IVPUSH Q5M PRN PRN Reason: Pain, Moderate to Severe (Pain Scale 4-10) Stop: 02/15/25 13:15 Hydromorphone HCl (Hydromorphone Hcl 0.5 Mg/0.5 Ml Syringe) 0.5 mg IVPUSH Q5M PRN PRN Reason: Pain, Moderate to Severe (Pain Scale 4-10) Stop: 02/15/25 13:15 Lactated Ringer's (Lr) 1,000 mls @ 999 mls/hr IV .Q1H1M [facility] Stop: 02/15/25 08:15 Last Admin: 02/15/25 06:31 Dose: 999 mls/hr Documented By: LUCY Lactated Ringer's (Lr) 1,000 mls @ 100 mls/hr IVCONT .Q10H [facility] Stop: 02/15/25 09:14 Lactated Ringer's (Lr) 500 mls @ 20 mls/hr IVCONT .Q24H [facility] Naloxone HCl (Naloxone Hcl 0.4 Mg/Ml Vial) 0.04 mg IVPUSH Q5M PRN PRN Reason: Excessive sedation or RR < 8 Ondansetron HCl (Ondansetron Hcl 4 Mg/2 Ml Vial) 4 mg IVPUSH ONCE PRN PRN Reason: Nausea and Vomiting Stop: 02/15/25 13:15 Labs 02/16/25 05:30 02/16/25 05:30 Procedures Date of Service Date of Service: 02/16/25 Progress Note: A&P Assessment and plan (1) Obesity: Status: Acute Assessment and Plan: s/p laparoscopic lysis of adhesions Doing well Will check am labs and if OK the patient will be discharged home (2) BMI 36.0-36.9,adult: Status: Acute (3) GERD (gastroesophageal reflux disease): Status: Acute (4) Hypothyroidism: Status: Acute (5) Knee pain: Status: Acute (6) Intra-abdominal adhesions: Status: Acute (7) Hepatomegaly: Status: Acute Time Spent With Patient Time: Total time managing care of this patient today ____ minutes. Quality Stroke Does the patient have a stroke diagnosis?: No VTE Prior VTE?: No VTE Risk Level:: Surgical - moderate VTE Device Contraindication: N/A - Device Ordered VTE Drug Contraindication: Treatment Not Indicated
[2025-02-15] MEDS: ceFAZolin Sodium/Dextrose,Iso 2 GM/50 ML PIGGYBACK IV ×2 (07:45→13:26)
[2025-02-15] MEDS: Acetaminophen 1,000 MG/100 ML PIGGYBACK 400 MG IV (07:57)
--- NOTE | 2025-02-15 09:55 | P.DS_ITS ---
DS: Providers Provider Date of Service: 02/16/25 Date of discharge: 02/16/25 Primary care physician: David Wilcox MD DS: Diagnosis Discharge Diagnosis (1) Obesity: Status: Acute (2) BMI 36.0-36.9,adult: Status: Acute (3) GERD (gastroesophageal reflux disease): Status: Acute (4) Hypothyroidism: Status: Acute (5) Knee pain: Status: Acute DS: Summary Hospital Course Hospital Course: ADMITTING DIAGNOSIS: obesity, hypothyroid, gerd, hiatal hernia ? DISCHARGE DIAGNOSIS: same, s/p laparoscopic lysis of adhesion ? PAST SURGICAL HISTORY: LSG, cholecystectomy, tubal ligation, cesarian section ? PROCEDURE: upper endoscopy, laparoscopic lysis of adhesions ? DISCHARGE SUMMARY: ? History of Present Illness: ? The patient is a?39 year-old woman with a BMI of?38 kg/m2 and associated co- morbidities as described above. The patient had extensive work-up,lost?9.4 lbs preoperatively and was electively scheduled for laparoscopic, possible open revision of previous sleeve gastrectomy and gastropexy. Risks and complications of the surgery were discussed with the patient in advance, particularly the possibility of , pulmonary embolism, anastomotic leak, bleeding, bowel injury, GERD, cardiac, renal or pulmonary complications. The patient understood all the risks and was in agreement with the surgical plan. ? Hospital Course: ? The patient underwent an uneventful laparoscopic lysis of adhesions on the day of admission. The revision and possible repair of hiatal hernia was unable to be accomplished due to extensive adhesions between the stomach, liver, pancrease, and spleen. Postoperatively, the patient was transferred to the surgical floor. The patient received IV Acetaminophen and IV dilaudid for pain control. Patient was started on bariatric phase 1 diet POD #0. On postoperative day one, the patient was feeling well without nausea, vomiting, fevers, or tachycardia. The patient had some mild incisional pain and the abdomen was soft. ? On the morning of postoperative day one, the patient was continued on 1 ounce of water or ice every half hour. During the day, the patient did fairly well, having some incisional pain, but able to ambulate adequately and to tolerate liquids well. ? Since the patient is doing well, we decided that the patient was ready to be discharged. The patient was given instructions to follow-up with me next week and to call my office for any fever over 101, persistent abdominal pain, nausea, vomiting, GERD, symptoms of DVT such as calf tenderness, or leg swelling, or pulmonary embolism such as chest pain or shortness of breath. The patient was also instructed to drink 40-60 ounces of liquids per day using the 1-ounce cups. The patient had been given prescriptions for Tylenol for pain, Zofran prn for nausea, and pantoprazole and carafate previously. The patient was encouraged to ambulate and use the incentive spirometer. The patient was allowed to shower, but no baths, and encouraged to stay active at home. All of these instructions were given to the patient personally. All questions were answered and the patient understood all instructions, the instructions were also given to the patient in print. Time Attestation Total time managing care of this patient today: 25 mintues. Discharge Coordination Time (in mins): 25 Quality: Safe Use of Opioids Does Pt have an Active Cancer Diagnosis on the Problem List?: No Quality: Stroke Does the patient have a stroke diagnosis?: No Physical Exam Vital Signs: Vital Signs: Last Vital Signs Temp 98.6 F 02/15/25 06:15 Pulse 75 02/15/25 06:15 Resp 20 02/15/25 06:15 BP 148/90 H 02/15/25 06:15 Pulse Ox 98 02/15/25 06:15 O2 Del Method Room Air 02/15/25 06:15 BMI result Body Mass Index 36.0 Discharge Plan Discharge Patient Disposition: Home, Self-Care Referrals: David Wilcox MD [Primary Care Provider, Internal Medicine] - 1 Week Discharge Medications: Continued levothyroxine 50 mcg Tablet 50 mcg PO SUTHFRSA@0600 Vitron-C 65 mg iron- 125 mg Tablet,Delayed Release (Dr/Ec) 1 tab PO DAILY calcium-vitamin D3-vitamin K 500 mg-100 unit -40 mcg Tablet,Chewable 1 tab PO DAILY ferrous sulfate [FeroSul] 325 mg (65 mg iron) tablet 325 mg PO DAILY pantoprazole 40 mg tablet,delayed release (DR/EC) 40 mg PO DAILY Qty: 90 0RF sucralfate 100 mg/mL suspension 10 ml PO BID Qty: 600 2RF Patient Comments: postop med ondansetron 4 mg tablet,disintegrating 4 mg PO Q12H Qty: 20 0RF Patient Comments: postop med Rx Instructions: Only take one every 12 hours as needed if you have nausea levothyroxine 25 mcg tablet 25 mcg PO STONEE@0600 Discharge Orders: Discharge Order (Routine); Ordered 02/16/25 Ordered By: Alfredo Taylor Activity on Discharge: No heavy lifting Activity Restrictions/Additional Instructions: No tub baths, sex or returning to work until discussed at first post op appointment. No exercise, alcohol, tobacco or illegal drug use. Continue to use incentive spirometer hourly while awake. Walk in home for 5- 10 minutes every 2 hours during the first week. Follow all instructions in the bariatric handbook and call with any questions.Discharge Instructions 1. Please call your doctor or come back to the emergency room should any new symptoms arise. 2. You will receive a courtesy call from [facility] 24-48 hours after discharge. 3. Activity: abstain from alcohol, practice limited stair climbing, no bending, no driving, no exercise, no illicit substances, no lifting, no sex, no tub bath, no work. 4. Diet: continue as discussed with Dr. Taylor. 5. Dressing Change/Wound Care: Your incision is covered by clear bandages and guaze underneath. If the area is tender, you may apply an ice pack for short intervals (no more than 20 minutes on, followed by at least 20 minutes off). Do not apply heat. Do not use creams, lotions, or topical antibiotics unless instructed to do so by your surgeon. These can cause infection or allergic reaction. 6. Call your doctor if: - Your temperature exceeds 101.5 F - You experience excessive pain or swelling - You have an unexpected reaction to medication - You have excessive bleeding - You experience continued vomiting/nausea - Your incision begins to separate - Your incision shows signs of infection such as increased redness, swelling, excessive pain, heat, or drainage (light blood or clear fluid is normal) 7. General instructions: No lifting greater than 5 lbs for 1 week and not more than 20lbs the next 3?weeks. No driving until seen at the office in 5-7 days after surgery. If you do not move your bowels in the next 2 days, please tell?Dr. Taylor. Please walk around your home every hour or two to prevent blood clots from forming in your legs. You do not need to wake from sleeping to walk. Please sleep in a bed or couch to prevent kinking at the hips and knees. Please take your incentive spirometer (your lung gis programmer) home with you and use it for the next few days to prevent pneumonia. You may shower, no hot tubs, baths or swimming pools.?Please follow the post op diet instructions you are?given by Dr Taylor? and text me daily at 5-6pm for an update.?If you have any issues or concerns or questions please communicate this to him via text.? The Celebrate shakes have all of the bariatric vitamins you need if you consume these shakes. If you are drinking other protein shakes, you will need to purchase the Celebrate multivitamins and calcium that are available in the hospital gift shop on the first floor of the [facility].??Do not take anything without first discussing with Dr Taylor. Please make sure you are consuming at least 40 ounces of fluids per day starting the?day AFTER your discharge from the hospital. Always drink 1-2 ml per minute using the 5ml?syringe. If you drink faster you may experience?bloating,?gas pain, burping, nausea or heartburn. In that case please slow down your pace and use the syringe to?understand better the?proper?pace and volume of drinking. Do not hesitate to contact the office with any questions at . The patient's medical history has been reviewed and they are considered low risk for post op DVT and therefore DVT prophylaxis is not considered necessary. Travel after surgery was reviewed. The patient has not disclosed any travel plans during the first 30 days after surgery and they have been advised that within the first 30 days after surgery any bus, plane, train or car travel over 2 hours in duration is contraindicated due to the possibility of developing blood clots from immobility. Any travel, needs to include periods of ambulation of 10 minutes in duration every 2 hours.? The patient was instructed to discuss any plans for travel during this period with their bariatric surgeon. Print Language: Kittitian Discharge Date/Time: 02/16/25 09:30
[2025-02-15] MEDS: HYDROmorphone HCl 0.5 MG/0.5 ML SYRINGE IVPUSH ×2 (10:20→10:40)
[2025-02-15 10:37] LABS: Hematocrit 40.3 % (37.0-47.0)
[2025-02-15 10:48] LABS: Anion Gap 12 (12-20); Blood Urea Nitrogen 5 mg/dL (9-16); Calcium 8.6 mg/dL (8.4-10.2); Carbon Dioxide 26 mmol/L (22-29); Chloride 106 mmol/L (96-108); Creatinine Clr Calc Pharmacy 112.4; Estimated Glomerular Filt Rate > 60; Glucose Random 131 mg/dL (60-115); Potassium 3.9 mmol/L (3.3-5.1); Sodium 140 mmol/L (135-145)
[2025-02-15] MEDS: Lactated Ringers 1,000 ML 100 ML IVCONT ×2 (12:56→22:31)
[2025-02-15] MEDS: Acetaminophen 1,000 MG/100 ML PIGGYBACK 16.7 MG IV ×2 (14:34→20:00)
[2025-02-15] MEDS: 0.9 % Sodium Chloride Flush 3 ML SYRINGE IVFLUSH (19:29)
[2025-02-15] MEDS: ondansetron HCL 4 MG/2 ML VIAL IVPUSH (19:29)
[2025-02-16] MEDS: Acetaminophen 1,000 MG/100 ML PIGGYBACK 16.7 MG IV ×2 (02:00→08:07)
[2025-02-16 03:16] VITALS: BP 107/58; PULSE 69; RESP 18; TEMP 36.3; O2SAT 97
[2025-02-16] MEDS: Pantoprazole Sodium 40 MG/10 ML VIAL IVPUSH (05:39)
[2025-02-16] MEDS: Levothyroxine Sodium 50 MCG TABLET PO (05:39)
[2025-02-16] MEDS: ondansetron HCL 4 MG/2 ML VIAL IVPUSH (05:44)
[2025-02-16 05:49] LABS: MANUAL DIFF FLAG NO
[2025-02-16 06:08] LABS: Anion Gap 12 (12-20); Blood Urea Nitrogen 4 mg/dL (9-16); Calcium 8.2 mg/dL (8.4-10.2); Carbon Dioxide 23 mmol/L (22-29); Chloride 107 mmol/L (96-108); Creatinine Clr Calc Pharmacy 153.4; Estimated Glomerular Filt Rate > 60; Glucose Random 93 mg/dL (60-115); Potassium 4.3 mmol/L (3.3-5.1); Sodium 138 mmol/L (135-145)
[2025-02-16 06:17] LABS: Basophils Percent Auto 0.1 % (0-2); Eosinophils Percent Auto 0.1 % (0-4); Hematocrit 37.5 % (37.0-47.0); Hemoglobin 12.8 g/dl (12.0-16.0); Imm Gran Abs Auto 0.02 X10*3/uL (0.00-0.03); Imm Gran Pct Auto 0.3 % (0.0-0.4); Lymphocytes Absolute Auto 0.9 X10*3/uL (1.2-4.9); Mean Corpuscular HGB Conc 34.1 g/dl (31.0-35.0); Mean Corpuscular Volume 79.1 fL (80.0-98.0); Monocytes Absolute Auto 0.4 X10*3/uL (0.1-1.2); Monocytes Percent Auto 6.2 % (2-11); Neutrophils Absolute Auto 5.6 x10*3/uL (2.0-8.3); Neutrophils Percent Auto 80.3 % (45-73); Platelet Count 172 X10*3/uL (160-400); Red Blood Count 4.74 X10*6/uL (4.20-5.50); Red Cell Distribution Width 13.2 % (11.0-16.0)
[2025-02-16 06:56] VITALS: BP 120/70; PULSE 72; RESP 18; TEMP 36.2; O2SAT 99
[2025-02-16] MEDS: Lactated Ringers 1,000 ML 100 ML IVCONT (08:07)
--- NOTE | 2025-02-16 08:57 | MHC.CM.PN ---
S/P AMARILYS + re-do of Gastric Sleeve. Lives with family Independent with all functional mobility DP home self care. She has arranged for a family member to provide transportation home. Patient is discharged today.
[2025-02-16 09:10] VITALS: BP 133/72; PULSE 72; RESP 18; TEMP 36.1; O2SAT 100
--- NOTE | 2025-02-16 09:14 | HO.POSTANES ---
Post Anesthesia Evaluation Post Anesthesia Evaluation Date of Service: 02/16/25 Vital Signs: Vital Signs Temp Pulse Resp BP Pulse Ox O2 Del Method 02/16/25 09:10 97.0 F 72 18 133/72 100 Room Air 02/16/25 06:56 97.2 F 72 18 120/70 99 Room Air 02/16/25 03:16 97.4 F 69 18 107/58 L 97 Room Air 02/15/25 23:23 96.9 F 70 18 119/58 L 99 Room Air Anesthesia: General Endotracheal-GETA Mental Status: Awake Pain Control: Satisfactory Nausea/Vomiting: Mild Hydration: Adequate Anesthesia-Related Issues: No Anes. Related Issues
== END 2025-02-16 09:30 | disposition home or self-care (01) ==
LOC: HO.SSS 09:59 → HO.S3 11:52
PROVIDERS: Physician Assistant Surgical; PCP Internal Medicine; Visit Provider Surgery
PROC: (CPT 44180; principal; 2025-02-15 07:30)
DX: E66.09 Other obesity due to excess calories (principal); Z68.37 Body mass index [BMI] 37.0-37.9, adult; K95.89 Other complications of other bariatric procedure; K66.0 Peritoneal adhesions (postprocedural) (postinfection); K91.1 Postgastric surgery syndromes; Z98.84 Bariatric surgery status; K21.9 Gastro-esophageal reflux disease without esophagitis; K44.9 Diaphragmatic hernia without obstruction or gangrene; R11.0 Nausea; R16.0 Hepatomegaly, not elsewhere classified; E03.9 Hypothyroidism, unspecified; M25.569 Pain in unspecified knee; Z79.899 Other long term (current) drug therapy; L23.1 Allergic contact dermatitis due to adhesives; Z98.890 Other specified postprocedural states
CPT/HCPCS: 44180; 36415; 80048; 80053; 80061; 83036; 83525; 84443; 85014; 85018; 85025; 85610; 85730; 86140; 86850; 86900; 86901; A4649; C9145; J0131; J0690; J1100; J1171; J2003; J2250; J2405; J2470; J2704; J2795; J3010; J7120

== ENCOUNTER → 2025-02-15 06:04 | Outpatient (BNV) | payer OTHER, SELFPAY | PROVIDERS: PCP Internal Medicine; Visit Provider Surgery | DX: E66.09 Other obesity due to excess calories (principal); Z68.36 Body mass index [BMI] 36.0-36.9, adult; K66.0 Peritoneal adhesions (postprocedural) (postinfection) | CPT/HCPCS: 43235; 44180 ==

== ENCOUNTER 2025-02-22 13:33 | Outpatient (AMB) | payer OTHER, SELFPAY ==
--- NOTE | 2025-02-22 13:35 | MHC.OFFVISWM ---
VS Expanded 02/22/25 13:45 BP 165/70 H Blood Pressure Location Rt brachial Blood Pressure Position Sitting Pulse 67 Pulse Source Pulse Oximeter Temp 97.1 F Temperature Source Temporal Artery Scan Pulse Oximetry 99 Oxygen Delivery Method Room Air Height 5 ft 4 in Weight 211 lb BMI 36.2 Body Fat % 38.5 Body Fat Mass 81.2 Fat Free Mass 129.8 Visceral Fat Rating 9.0 Body Water % 44.0 Body Water Mass 92.8 Muscle Mass/Score 1,232 Basal Metabolic Rate/Score 1,788 Intake Visit Reasons: (OV) PO LSG 02/15/25 Allergies adhesive Allergy (Severe, Verified 02/22/25 13:47) Blister, also steri-strips Medication List - Last Reconciled 02/22/25 by REBECCA Aleman calcium-vitamin D3-vitamin K 500 mg-100 unit -40 mcg 1 tab PO DAILY ferrous sulfate (FeroSul) 325 mg PO DAILY iron,carbonyl-vitamin C 65 mg iron- 125 mg (Vitron-C) 1 tab PO DAILY levothyroxine 50 mcg PO SUTHFRSA@0600 levothyroxine 25 mcg PO MOTUWE@0600 ondansetron 4 mg PO Q12H pantoprazole 40 mg PO DAILY HPI Comments Details: Pt is s/p lap LOA02/15/2025. Revision sleeve gastrectomy was unable to be completed due to dense adhensions. Today pt feels low energy. Has had nausea, some cramping. No vomiting. Restarted meal plan with bars/shakes plus one meal that she was doing prior to surgery. [facility] Medical History (Updated 02/15/25 @ 12:59 by Alfredo Taylor MD) Hypothyroidism Knee pain Diaphragmatic hernia GERD (gastroesophageal reflux disease) BMI 37.0-37.9, adult Obesity Surgical History (Updated 02/22/25 @ 14:33 by Mary Wilkerson CMA) S/P laparoscopy with lysis of adhesions H/O excision of mass History of esophagogastroduodenoscopy (EGD) (02/2024) Hx of tubal ligation Hx of section Hx of cholecystectomy Hx of adenoidectomy Hx of tonsillectomy Hx of myringotomy Family History Paternal Aunt Uterus cancer Paternal Grandfather Diabetes Social History Household Members: Significant Other Housing: Homeless 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 primary care sales to a significant other at home: Yes (children) Do you presently have visiting nurse or other home services: No 75 years or older and lives alone: No Alcohol intake: current Alcohol intake frequency: holidays/special occasions only Alcohol type: hard liquor and other Patient Tobacco Use Status: Never used Tobacco e-Cigarette/Vaping Use: Never Used service: No Physical Exam Vital Signs: Last Vital Signs Temp 97.1 F 02/22/25 13:45 Pulse 67 02/22/25 13:45 BP 165/70 H 02/22/25 13:45 Pulse Ox 99 02/22/25 13:45 Oxygen Delivery Method Room Air 02/22/25 13:45 BMI result Body Mass Index 36.2 Const General: cooperative, comfortable and no acute distress Orientation/consciousness: patient oriented x3 GI Other: soft, nontender, nondistended, incisions clean without erythema/drainage Neuro General: patient oriented x3 Assessment & Plan Assessment & Plan (1) Obesity: Code(s): E66.9 - Obesity, unspecified Category: Medical Qualifiers: Obesity type: due to excess calories Obesity classification: adult class 2 (BMI 35 - 39.9) Serious obesity comorbidity presence: without serious comorbidity Body mass index: BMI 37.0-37.9 Qualified Code(s): E66.09 - Other obesity due to excess calories; Z68.37 - Body mass index [BMI] 37.0-37.9, adult (2) S/P laparoscopy with lysis of adhesions: Code(s): Z98.890 - Other specified postprocedural states Category: Surgical Plan Pt to continue meal plan per Dr. Gr Reviewed activity restrictions until 6w postop. May shower but no bath or submersion of abdomen in water. May start exercise. Abdominal binder for the next 2 weeks with activity or exercise. Pt was previously denied Ozempic and Zepbound. However she has been in weight mgmt program for almost 3mo, since November. She has also been unsuccessful in revision bariatric surgery due to inability to safely complete the procedure. She is a good candidate for GLP1. Will prescribe Zepbound again. RTC 5 weeks. Medications: New Zepbound (tirzepatide (weight loss)) for 4 weeks 2.5 mg (0.5 mL) subcut QWEEK 2 mL 0RF NS
--- OUTSIDE RECORDS SUMMARY | 2025-02-22 13:41 | XMS_ITS | Encounter Summary ---
Author Organization [facility] Address [address] [place] [address] Care Team Providers Care Machine Iii Coremaker Name Role Phone Pcp, No Primary Care Provider Unavailabl e Encounter Details Date Type Department Care Team (Late st Contact Info) Description 05/15/2024 Scanned Document [address] [place] [address] [phone] Provider, Generic Social History Tobacco Use Types [...] on filedocumented in this encounter Care Teams Machine Iii Coremaker Relationship Specialty Start Date End Date Pcp, No PCP - General General Medicine 04/23/24 documented as of this encounter
--- OUTSIDE RECORDS SUMMARY | 2025-02-22 13:41 | XMS_ITS ---
Author Name [facility] Organization Unknown History of Medication Use Medication Directions Dispensed Refills Start Date End Date Stat us proMETHAZINE-dextromet horphan (proMETHAZINE-DM) 6.25-15 MG/5ML syrup Take 2.5 mL by mouth every 4 (four) hours as needed for cough. 09/10/2024 active albuterol (PROVENTIL HFA; VENTOLIN HFA) 108 (90 Base) MCG/ACT inhaler Inhale 2 puffs 4 times daily (every 6 hours) as needed for wheezing. 05/15/2024 09/10/2024 active ferrous sulfate 325 (65 FE) MG tablet Take 1 tablet by mouth. 04/26/2024 active cholecalciferol (CHOLECALCIFEROL) 125 MCG (5000 UT) capsule Take by mouth. 04/15/2024 active Vitron-C 65-125 MG Tab TAKE 1 TAB ORALLY DAILY SWALLOW WHOLE DO NOT CHEW/BREAK/DISSOL VE/OPEN 04/15/2024 active OMEprazole (PriLOSEC) 20 MG capsule Take by mouth. 02/16/2024 active Allergies Allergen Reaction Severity Comment Documented Date Source Statu s BENZOIN RASH/DERMATITIS Steri-strip Compound Benzoin [Benzoin Compound Tincture] Steri stirp causes bad rash 04/08/2022 [facility] active LEVOFLOXACIN MYALGIA/MYOSITIS/ ARTHRALGIA/ARTHRI TIS 05/05/2019 [facility] active Problems Problem Status Onset Date Problem Type Date of Resoluti on Source Viral URI active [facility] Acute cough active [facility] Encounters Encounter Type Encounter Reason Primary Diagnosis Location Date Ambulatory Acute cough Acute cough [facility] 09/10/2024 Ambulatory Cough Cough [facility] 09/10/2024 Ambulatory COVID-19 COVID-19 [facility] 05/15/2024 Care Team Organization Name Specialty Phone Email Start Date End [facility] 05/15/2024 11/08/2024 [facility] NO PCP Primary Care 05/15/2024 [facility] 05/15/2024
--- OUTSIDE RECORDS SUMMARY | 2025-02-22 13:41 | XMS_ITS | Clinical Summary ---
Author Organization Patient Business Ser [facility] Address [address] [place] [address] Care Team Providers Care Binder Cutter Hand Name Role Phone David Wilcox MD Primary Care Provider [phone] Allergies Active Allergy Reactions Criticality Noted Date [...] - 12/06/2024 11:59 PM EDT Hospital Encounter [facility] MRI [address] [place] [address] Encephalopathy, unspecified Discharge Disposition: Home or Self Care 12/05/2024 Telephone Internal [facility] [address] [place] [address] David Wilcox MD thumb pain from Last 3 Months Immunizations Name Administration Dates Next Due Hepatitis B (Vpvguak-X-Azixm , Recombivax HB-Adult) 19yo and older 12/13/2017,07/19/2017,06/14/2017 [...] CHOLECYSTECTOMY PROCEDURE: HISTORICAL CHOLECYSTECTOMY BARIATRIC SURGERY PROCEDURE: [place] LAPS GSTRC RSTRICTIV PX LONGITUDINAL GASTRECTOMY; COMMENT: [...] Last Done Comments Breast Cancer Screening 1983 Cervical Cancer Screening: P ap Smear 10/21/2013 10/21/2010 Depression Screening 08/05/2020 HIV Screening 08/05/2020 Social Influencers of Health Screening 08/05/2020 DTaP,Tdap,and Td Vaccines (4 - Td or Tdap) 04/03/2024 04/03/2014, 08/29/2012, 02/02/2011 COVID-19 Vaccine (3 - 2023-2 5 season) 2024 01/01/2021, 12/04/2020 Influenza Vaccine (#1) 2025 06/24/2018 Cholesterol Screening (Lipid Panel) 11/12/2027 [...] age to complete this topic Pneumococcal Vaccine: Pediatrics (0 to 5 Years) and At-Risk Patients (6 to 64 Years) Aged Out No longer eligible b [...] Routine 11/11/2022 HEPATITIS C SCREENING Routine 04/05/2017 PAP SMEAR Routine 10/21/2010 from Last 3 [...] Signed Date: 12/07/2024 08:59 ET Workstation ID: [id number] Transcribed By: Self Edit Transcribed Date: 12/07/2024 08:57 ET Narrative 12/07/2024 8:59 AM EDT PROCEDURE: Noncontrast MRI of the brain. HISTORY: encephalopathy. Memory problems. COMPARISON: None. TECHNIQUE: Multiplanar multisequence MRI of the brain without intravenous contrast administration. FINDINGS: BRAIN: No diffusion abnormality. No mass or extra-axial fluid collection. No hydrocephalus. The major intracranial flow voids are preserved. Age commensurate ventricles and sulci. ORBITS: Normal. SINUSES/MASTOIDS: Mild mucosal thickening in both maxillary antra. Small amount of layering debris in the posterior left maxillary antrum. Moderate mucous retention cyst along the floor the right maxillary antrum. Mild mucosal thickening in the right frontoethmoidal recess and in the inferior sphenoid sinus. Small amount of fluid in the mastoids, right [...] Signed Date: 12/07/2024 08:59 ET Workstation ID: [id number] Transcribed By: Self Edit Transcribed Date: 12/07/2024 08:57 ET Mynor Mccabe MD IMG MRI PROCEDURES Final Re sult * Lipid panel (11/11/2022) [facility] LDL/HDL Ratio 2 0 - 4 Triglycerides 99 0 - 150 mg/dL Cholesterol 141 0 - 200 mg/dL HDL 63 >=40 mg/dL LDL Cholesterol 59 0 - 100 mg/dL Blood Venous blood specimen / Unknown Result [facility] Historical Provider LAB BLOOD ORDERABLES Gay l Result * Hepatitis C Screening (04/05/2017) Pathologist [facility] Hepatitis C Screening abstracted Historical Provider HEALTH MAINTENANCE Final Result * Pap Smear (10/21/2010) Pathologist [facility] Pap smear no interpretation , abstracted Historical Provider HEALTH MAINTENANCE Final Result from Last 3 Months or Most Recently Relevant to Health Maintenance Insurance Care Teams Binder Cutter Hand Relationship Specialty Start Date End Date David Wilcox MD [address] [place] [phone] PCP - General Internal Medicine 09/12/24
[2025-02-22 13:45] VITALS: BP 165/70; PULSE 67; TEMP 36.2; O2SAT 99; BMI 36.2
== END 2025-02-22 14:42 | disposition home or self-care (01) ==
LOC: HO.HBS 13:34
PROVIDERS: PCP Internal Medicine; Visit Provider Physician Assistant Surgical
DX: E66.09 Other obesity due to excess calories (principal); Z68.37 Body mass index [BMI] 37.0-37.9, adult; Z98.890 Other specified postprocedural states
CPT/HCPCS: 99214

== ENCOUNTER 2025-03-12 09:56 | Outpatient (REF) | payer OTHER, SELFPAY ==
--- OUTSIDE RECORDS SUMMARY | 2025-03-12 10:40 | XMS_ITS | Clinical Summary ---
Author Organization Patient Business Ser [facility] Address [address] [place] [address] Care Team Providers Care Hostess Name Role Phone David Wilcox MD Primary Care Provider [phone] Allergies Active Allergy Reactions Criticality Noted Date [...] 01/27/2018 Hepatomegaly 03/26/2017 Hypothyroidism 02/07/2016 Eczema 06/19/2015 Immunizations Name Administration Dates Next Due Hepatitis B (Xcpkfvp-P-Hyono , Recombivax HB-Adult) 19yo and older 12/13/2017,07/19/2017,06/14/2017 [...] CHOLECYSTECTOMY PROCEDURE: HISTORICAL CHOLECYSTECTOMY BARIATRIC SURGERY PROCEDURE: [place] LAPS GSTRC RSTRICTIV PX LONGITUDINAL GASTRECTOMY; COMMENT: [...] Cancer Screening: P ap Smear 10/21/2013 10/21/2010 HIV Screening 08/05/2020 Social Influencers of Health Screening 08/05/2020 DTaP,Tdap,and Td Vaccines (4 - Td or Tdap) 04/03/2024 04/03/2014, 08/29/2012, 02/02/2011 COVID-19 Vaccine (3 - 2023-2 5 season) 2024 01/01/2021, 12/04/2020 Depression Screening 08/23/2024 Influenza Vaccine (#1) 2025 06/24/2018 Cholesterol Screening [...] 5 Years) and At-Risk Patients (6 to 49 [...] Procedure Name Priority Date/Time Associated Diagnosis Comments LIPID PANEL Routine 11/11/2022 HEPATITIS C SCREENING Routine 04/05/2017 PAP SMEAR Routine 10/21/2010 from Last 3 Months or Most Recently Relevant to Health Maintenance Results * Lipid panel (11/11/2022) LDL/HDL Ratio 2 0 - 4 Triglycerides 99 0 - 150 mg/dL Cholesterol 141 0 - 200 mg/dL HDL 63 >=40 mg/dL LDL Cholesterol 59 0 - 100 mg/dL Blood Venous blood specimen / Unknown Historical Provider LAB BLOOD ORDERABLES Gay l Result * Hepatitis C Screening (04/05/2017) Hepatitis C Screening abstracted Historical Provider HEALTH MAINTENANCE Final Result * Pap Smear (10/21/2010) Pap smear no interpretation , abstracted Historical Provider HEALTH MAINTENANCE Final Result from Last 3 Months or Most Recently Relevant to Health Maintenance Insurance NA Care Teams Hostess Relationship Specialty Start Date End Date David Wilcox MD [address] [place] [phone] PCP - General Internal Medicine 09/12/24
--- OUTSIDE RECORDS SUMMARY | 2025-03-12 10:40 | XMS_ITS | Encounter Summary ---
Author Organization [facility] Address [address] [place] [address] Care Team Providers Care Diagnostic Tech Name Role Phone Pcp, No Primary Care Provider Unavailabl e Encounter Details Date Type Department Care Team (Late st Contact Info) Description 05/15/2024 Scanned Document [address] [place] [address] [phone] Provider, Generic Social History Tobacco Use Types [...] on filedocumented in this encounter Care Teams Diagnostic Tech Relationship Specialty Start Date End Date Pcp, No PCP - General General Medicine 04/23/24 documented as of this encounter
[2025-03-12 10:45] LABS: MANUAL DIFF FLAG NO
[2025-03-12 11:04] LABS: Hematocrit 42.3 % (37.0-47.0); Hemoglobin 13.9 g/dl (12.0-16.0); Imm Gran Abs Auto 0.02 X10*3/uL (0.00-0.03); Imm Gran Pct Auto 0.3 % (0.0-0.4); Lymphocytes Absolute Auto 1.9 X10*3/uL (1.2-4.9); Mean Corpuscular HGB Conc 32.9 g/dl (31.0-35.0); Mean Corpuscular Hemoglobin 26.7 pg (27.0-33.0); Mean Corpuscular Volume 81.2 fL (80.0-98.0); NRBC Abs Auto 0.000 X10*3/uL (0.0-0.012); NRBC Pct Auto 0.0 /100WBC (0.0-0.2); Platelet Count 247 X10*3/uL (160-400); Red Blood Count 5.21 X10*6/uL (4.20-5.50); White Blood Count 6.1 X10*3/uL (4.8-10.8)
[2025-03-12 11:12] LABS: Hemoglobin A1C 115.8118 umol/L; Total Hemoglobin (HGBA1C) 3672.7205 umol/L
[2025-03-12 12:00] LABS: Alanine Aminotransferase 15 U/L (0-31); Albumin Level 4.2 g/dL (3.5-5.0); Alkaline Phosphatase 83 U/L (39-117); Anion Gap 12 (12-20); Aspartate Amino Transferase 20 U/L (5-31); Blood Urea Nitrogen 13 mg/dL (9-16); Calcium 9.2 mg/dL (8.4-10.2); Carbon Dioxide 27 mmol/L (22-29); Chloride 108 mmol/L (96-108); Cholesterol 161 mg/dL (<200); Estimated Glomerular Filt Rate > 60; Ferritin 22 ng/mL (10-250); HDL Cholesterol 55 mg/dL (>40); Iron 70 mcg/dL (30-160); Percent Iron Saturation 25 % (15-50); Potassium 4.4 mmol/L (3.3-5.1); Sodium 143 mmol/L (135-145); Total Iron Binding Capacity 277 mcg/dL (228-428); Total Protein 6.9 g/dL (6.5-8.0); Triglycerides 95 mg/dL (<150); Unsaturated Iron Binding 207 ug/dL
[2025-03-12 12:11] LABS: Folate 9.7 ng/mL (> or = 4.0); Vitamin B12 661 pg/mL (200-900)
== END 2025-03-12 09:57 | disposition home or self-care (01) ==
LOC: HO.LAB 09:56
PROVIDERS: PCP Internal Medicine; Visit Provider Physician Assistant Surgical
DX: E66.09 Other obesity due to excess calories (principal); Z68.37 Body mass index [BMI] 37.0-37.9, adult; R53.83 Other fatigue
CPT/HCPCS: 36415; 80053; 80061; 82306; 82607; 82728; 82746; 83036; 83525; 83540; 84425; 84443; 84590; 84630; 85025; 86140